=== PATIENT | male | born 1975 | race Caucasian/White ===

== ENCOUNTER 2020-07-07 18:48 | Emergency (ER) | payer SELFPAY ==
[2020-07-07] MEDS ORDERED: FAMOTIDINE 20MG/2ML IV (PEPCID) IV STA (18:57)
[2020-07-07] MEDS ORDERED: LACTATED RINGERS 1,000 ML IV STA (18:57)
[2020-07-07] MEDS ORDERED: ONDANSETRON 4 MG/2 ML (SDV) Z0FRAN IVP ONE (19:00)
== END 2020-07-07 18:57 | disposition left against medical advice (07) ==
LOC: EDUNIT# 18:48 → ER 18:51
DX: F10.129 Alcohol abuse with intoxication, unspecified (principal)

== ENCOUNTER 2022-04-03 01:35 | Inpatient (IN) | payer OTHER ==
[~2022-04-03] VITALS: Ht 193 cm; Wt 159.1 kg
[2022-04-03] VITALS (24 sets, daily range): BP systolic 122–185; BP diastolic 52–86
[2022-04-03] MEDS ORDERED: LACTATED RINGERS 1,000 ML IV ONE (02:15)
[2022-04-03 02:19] LABS: BASOPHILS % (AUTO) 1 % (0-10); EOSINOPHILS % (AUTO) 1 % (0-10); HEMATOCRIT 25 % (40-54); HEMOGLOBIN 7.8 g/dL (13.3-17.7); LYMPHOCYTES # (AUTO) 1.2 10^3/uL (1.0-4.0); LYMPHOCYTES % (AUTO) 24 % (12-44); MEAN CORPUSCULAR HEMOGLOBIN 28 pg (25-34); MEAN CORPUSCULAR HGB CONC 31 g/dL (32-36); MEAN CORPUSCULAR VOLUME 90 fL (80-99); MEAN PLATELET VOLUME 11.2 fL (9.0-12.2); MONOCYTES # (AUTO) 0.4 10^3/uL (0.0-1.0); MONOCYTES % (AUTO) 8 % (0-12); NEUTROPHILS # (AUTO) 3.4 10^3/uL (1.8-7.8); NEUTROPHILS % (AUTO) 66 % (42-75); WHITE BLOOD COUNT 5.2 10^3/uL (4.3-11.0)
[2022-04-03 02:21] LABS: PLATELET COUNT 34 10^3/uL (130-400)
[2022-04-03 02:23] LABS: ALBUMIN 2.9 GM/DL (3.2-4.5); CHLORIDE 104 MMOL/L (98-107); POTASSIUM 3.5 MMOL/L (3.6-5.0); SODIUM 140 MMOL/L (135-145)
[2022-04-03 02:24] LABS: CALCIUM 7.8 MG/DL (8.5-10.1)
[2022-04-03 02:26] LABS: GLUCOSE 236 MG/DL (70-105)
[2022-04-03 02:27] LABS: BILIRUBIN,TOTAL 3.5 MG/DL (0.1-1.0); CARBON DIOXIDE 22 MMOL/L (21-32)
[2022-04-03 02:29] LABS: ALKALINE PHOSPHATASE 111 U/L (40-136); CREATININE SERUM 1.12 MG/DL (0.60-1.30); GFR ESTIMATED 83
[2022-04-03 02:30] LABS: BUN/CREATININE RATIO 8
[2022-04-03 02:32] LABS: ALANINE AMINOTRANSFERASE 72 U/L (0-55)
[2022-04-03 02:42] LABS: AMYLASE 76 U/L (25-125)
[2022-04-03 02:45] LABS: CLARITY,URINE CLEAR; COLOR,URINE YELLOW; GLUCOSE, URINE (UA) TRACE (NEGATIVE); KETONES,URINE NEGATIVE (NEGATIVE); LEUKOCYTE ESTERASE ,URINE NEGATIVE (NEGATIVE); NITRITE,URINE NEGATIVE (NEGATIVE); PH,URINE 6.5 (5-9); PROTEIN,URINE TRACE (NEGATIVE)
[2022-04-03 02:48] LABS: FIBRIN DEGRADATION PRODUCTS 1.43 UG/ML (0.00-0.49); INR 1.7 (0.8-1.4); PROTHROMBIN TIME PATIENT 20.2 SEC (12.2-14.7)
[2022-04-03 02:49] LABS: MAGNESIUM 1.8 MG/DL (1.6-2.4)
[2022-04-03 02:50] LABS: LIPASE 62 U/L (8-78)
[2022-04-03 02:51] LABS: CREATINE KINASE 323 U/L (30-200)
[2022-04-03 02:57] LABS: CREATINE KINASE MB 3.9 NG/ML (<6.6)
[2022-04-03 03:09] LABS: BACTERIA,URINE NEGATIVE /HPF; BILIRUBIN,URINE 1+ (NEGATIVE); WBC,URINE 0-2 /HPF
[2022-04-03 03:11] LABS: TSH (THYROID ANALYZER) 2.23 UIU/ML (0.35-4.94)
[2022-04-03 03:19] LABS: AMPHETAMINE SCREEN, URINE NEGATIVE (NEGATIVE); BARBITURATE SCREEN URINE NEGATIVE (NEGATIVE); BENZODIAZEPINES SCREEN URINE NEGATIVE (NEGATIVE); CANNABINOID SCREEN, URINE POSITIVE (NEGATIVE); COCAINE SCREEN URINE NEGATIVE (NEGATIVE); METHADONE STAT NEGATIVE (NEGATIVE); OPIATE SCREEN URINE NEGATIVE (NEGATIVE); OXYCODONE STAT NEGATIVE (NEGATIVE); PROPOXYPHENE STAT NEGATIVE (NEGATIVE); TRICYCLIC ANTIDEPRESSANTS SCRE NEGATIVE (NEGATIVE)
[2022-04-03 03:48] LABS: ACETAMINOPHEN < 10 UG/ML (10-30)
[2022-04-03] MEDS ORDERED: NS IV 500 ML 500 ML ONE (04:07)
[2022-04-03] MEDS ORDERED: NS 100 ML (IVPB) BAG IV ONE (04:15)
[2022-04-03] MEDS ORDERED: CATHETER FLUSH 10 ML SYR IV PRN (04:15)
[2022-04-03] MEDS ORDERED: IOHEXOL 350 MG/ML 100 ML (OMNIPAQUE 350) VIAL IV ONE (04:15)
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
[2022-04-03] MEDS ORDERED: ONDANSETRON 4 MG/2 ML (SDV) Z0FRAN IV PRN (06:45)
[2022-04-03] MEDS ORDERED: ONDANSETRON 4 MG (ZOFRAN) ORAL DISSOLVE TAB SL PRN (06:45)
[2022-04-03] MEDS ORDERED: SENNA W/DOCUSATE (SENOKOT S) TABLET PO PRN (06:45)
[2022-04-03] MEDS ORDERED: ANTACID SUSP 30 ML UDC (MYLANTA) PO PRN (06:45)
[2022-04-03] MEDS ORDERED: 1/2 NS IV SOLUTION 1,000 ML IV PRN (06:45)
[2022-04-03] MEDS ORDERED: LORazepam INJ 2 MG/ML (ATIVAN) VIAL IV PRN (06:45)
[2022-04-03] MEDS ORDERED: LORazepam INJ 2 MG/ML (ATIVAN) VIAL IM/IV PRN (06:45)
[2022-04-03] MEDS ORDERED: D5 1/2 NS 1000 ML IV SOLUTION 1,000 ML IV PRN (06:45)
--- NOTE | 2022-04-03 07:16 | Diagnostic Imaging Report ---
EXAMINATION: CT angiography chest with and without, CT abdomen and pelvis with and without. TECHNIQUE: Noncontrast enhanced helical images were obtained through the chest, abdomen and pelvis. Contrast enhanced thin section helical images were obtained through the chest, abdomen and pelvis with intravenous contrast timed for the optimal opacification of the arterial structures per departmental CTA protocol. Post-processing, retro reconstructions and interpretation of angiographic images of the vessels was performed. 3D MIP reconstructions were performed and reviewed. All CT scans use one or more of the following dose optimizing techniques: automated exposure control, MA and/or KvP adjustment based on patient size and exam type or iterative reconstruction. HISTORY: Chest pain and elevated troponin, elevated bilirubin. COMPARISON: None available. FINDINGS: Evaluation for pulmonary embolism is limited by early scanning. No pulmonary embolism is seen to the lobar level. There is no edema or pneumonia. No pleural effusion. No pneumothorax. No suspicious nodules. There is no axillary or supraclavicular lymphadenopathy. There is no mediastinal lymphadenopathy. Heart size is normal. There are no coronary artery calcifications. No pericardial effusion. Aorta is normal in caliber. Liver is cirrhotic and heterogeneous. There are extensive collaterals in the left upper quadrant. There is no biliary ductal dilation. Mild gallbladder wall thickening is likely due to liver disease. Small stone is present in the gallbladder. Pancreas is normal. Spleen is enlarged. Adrenal glands are normal. The kidneys are normal. There is no hydronephrosis. Urinary bladder is normal. Bowel is normal in caliber without obstruction or inflammation. Appendix is normal. No free fluid or air. No abdominal or pelvic lymphadenopathy. Aorta is normal in caliber without aneurysm. There are no suspicious osseus lesions. IMPRESSION: 1. No pulmonary embolism, clear lungs. 2. Heterogeneous and cirrhotic liver with extensive portal venous collaterals and splenomegaly. There is no significant disagreement with the preliminary report. Dictated by: Dictated on workstation # [id number]
--- NOTE | 2022-04-03 07:58 | Diagnostic Imaging Report ---
EXAMINATION: Chest 1 view HISTORY: Chest pain COMPARISON: None available. FINDINGS: The lungs are clear without edema or pneumonia. No pleural effusion or pneumothorax. Heart size is normal. IMPRESSION: 1. Clear lungs. Dictated by: Dictated on workstation # [id number]
[2022-04-03] MEDS: 1/2 NS W/KCL 20 MEQ/L 1,000 ML IV SCH ×4 (08:40→22:30)
[2022-04-03] MEDS: THIAMINE INJECTION 100 MG, FOLIC ACID INJECTION 1 MG, MAGNESIUM SULFATE 2 GM, VITAMIN M... IV SCH ×5 (08:41)
[2022-04-03 08:56] LABS: CLARITY,URINE CLEAR; COLOR,URINE YELLOW; GLUCOSE, URINE (UA) TRACE (NEGATIVE); KETONES,URINE NEGATIVE (NEGATIVE); LEUKOCYTE ESTERASE ,URINE NEGATIVE (NEGATIVE); NITRITE,URINE NEGATIVE (NEGATIVE); PH,URINE 7.5 (5-9); PROTEIN,URINE TRACE (NEGATIVE)
[2022-04-03] MEDS ORDERED: PANTOPRAZOLE 40 MG (PROTONIX) VIAL IV SCH (09:00)
[2022-04-03 09:09] LABS: LYMPHOCYTES # (AUTO) 0.9 10^3/uL (1.0-4.0); NEUTROPHILS # (AUTO) 2.3 10^3/uL (1.8-7.8)
[2022-04-03 09:11] LABS: BASOPHILS % (AUTO) 1 % (0-10); EOSINOPHILS % (AUTO) 1 % (0-10); HEMATOCRIT 22 % (40-54); LYMPHOCYTES % (AUTO) 25 % (12-44); MEAN CORPUSCULAR HEMOGLOBIN 28 pg (25-34); MEAN CORPUSCULAR HGB CONC 32 g/dL (32-36); MEAN CORPUSCULAR VOLUME 88 fL (80-99); MEAN PLATELET VOLUME 10.6 fL (9.0-12.2); MONOCYTES # (AUTO) 0.3 10^3/uL (0.0-1.0); MONOCYTES % (AUTO) 9 % (0-12); NEUTROPHILS % (AUTO) 63 % (42-75); WHITE BLOOD COUNT 3.6 10^3/uL (4.3-11.0)
[2022-04-03 09:12] LABS: PLATELET COUNT 21 10^3/uL (130-400)
[2022-04-03 09:13] LABS: BACTERIA,URINE NEGATIVE /HPF; SQUAMOUS EPITHELIAL CELL,UR 0-2 /HPF
[2022-04-03 09:22] LABS: INR 1.8 (0.8-1.4); PROTHROMBIN TIME PATIENT 21.8 SEC (12.2-14.7)
[2022-04-03 09:31] LABS: ALBUMIN 2.6 GM/DL (3.2-4.5); BILIRUBIN,TOTAL 3.3 MG/DL (0.1-1.0); CALCIUM 7.4 MG/DL (8.5-10.1); CREATININE SERUM 0.81 MG/DL (0.60-1.30); POTASSIUM 3.3 MMOL/L (3.6-5.0); TOTAL PROTEIN 6.3 GM/DL (6.4-8.2)
[2022-04-03] MEDS ORDERED: NS IV 500 ML 500 ML IV SCH ×2 (09:45)
[2022-04-03] MEDS ORDERED: KCL 20 MEQ TAB (K-DUR) PO ONE ×3 (09:45→11:00)
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
--- NOTE | 2022-04-03 10:12 | CONSULTATION REPORT ---
DATE OF SERVICE: 04/03/2022 ADMITTING PHYSICIAN: Marlene Bello MD HISTORY OF PRESENT ILLNESS: The patient is a 46-year-old male who presented to the Emergency Department for weakness and dizziness. He states a history of alcoholism and states that he was in remission for the past 70 days; however, relapsed recently. His alcohol as upon admission was 0.37. He also has elevated INR, low albumin as well as elevated bilirubin and currently has a score of 10 on his modified Child-Ward classification and that takes into a grade C classification. Which brings his 1 year mortality rate to approximately 50%. It appears that he also has a history of liver cirrhosis. He does not report any episodes of ascites or known encephalopathy. He also does not recall any episodes of hematemesis, no coffee groundemesis and does not report having an upper endoscopy. He was found to be anemic and also reports that he has had issues with epistaxis. He does state that when he was dinking he would notice dark tarry stools.His platelets were found to be low at 21,000. He is currently admitted for IV hydration and detoxification. PAST MEDICAL HISTORY: Alcoholism and liver failure, liver cirrhosis. PAST SURGICAL HISTORY: None reported. ALLERGIES: No known drug allergies. MEDICATIONS: None. SOCIAL HISTORY: Current alcoholic. Positive smoke. Positive THC. FAMILY HISTORY: Noncontributory. VITAL SIGNS: Blood pressure 178/52, temperature 37.4, pulse ox 93% on room air. REVIEW OF SYSTEMS: Well-nourished male currently in no acute distress. He is not experiencing any shortness of breath or difficulty breathing. No chest pain, palpitations, diaphoresis. No nausea, vomiting. No diarrhea or constipation, no red blood per rectum, no dark tarry stools. No fever, chills. No recent inadvertent weight loss. All other review of systems negative. PHYSICAL EXAMINATION: CHEST: A few scattered wheezes bilaterally. HEART: Regular, no murmurs. EXTREMITIES: No lower extremity edema, negative Homans sign. HEENT: No scleral icterus. NECK: No cervical lymphadenopathy. ABDOMEN: Obese, nondistended, no abdominal pain. No hernias. SKIN: Warm and dry. ASSESSMENT AND PLAN: A 46-year-old male with history of alcoholism as well as likely liver cirrhosis and liver failure who is also anemic and thrombocytopenic. He has also a Child-Ward classification of liver failure C. Our recommendation is to proceed with continued conservative management for now with transfusion of packed red blood cells as well as platelets and to proceed with IV hydration. There is no contraindication to diet. At some point, he may need further workup including endoscopy for esophageal varices as well as a colonoscopy for hemorrhoidal disease. Due to the severity of his liver failure, he will also needs to stop drinking; however, would also likely need to see children's choir director. Job ID: [id number] DocumentID: [id number] Dictated Date: 04/03/2022 09:41:10 Cv/Cvn Cv Tsc System Operator Date: 04/03/2022 10:10:45 Dictated By: GUNNAR BOWER MD MTDD
--- NOTE | 2022-04-03 10:21 | Tele-ICU Consult ---
Progress Note video rounds completed 46 y/o male with ETOH and drug abuse admitted with possible GI bleed Recieved 1 unit PRBC, getting 2nd unit ETOH withdrawl on CIWA protocol Thiamine given PLAN: may need endoscopy Hold DVT px, SCD only Focused Exam Height, Weight, BMI Height: '" Weight: lbs. oz. kg; 32.48 BMI Method: Laboratory Tests 04/03/22 02:00 04/03/22 09:00 Results Results/Procedures Lab Laboratory Tests 04/03/22 02:00 04/03/22 09:00 Lab results: Laboratory Tests Test 04/03/22 02:00 04/03/22 02:30 04/03/22 02:45 04/03/22 03:10 Range/Units White Blood Count 5.2 4.3-11.0 10^3/uL Red Blood Count 2.77 L 4.30-5.52 10^6/uL Hemoglobin 7.8 L 13.3-17.7 g/dL Hematocrit 25 L 40-54 % Mean Corpuscular Volume 90 80-99 fL Mean Corpuscular Hemoglobin 28 25-34 pg Mean Corpuscular Hemoglobin Concent 31 L 32-36 g/dL Red Cell Distribution Width 16.0 H 10.0-14.5 % Platelet Count 34 *L 130-400 10^3/uL Mean Platelet Volume 11.2 9.0-12.2 fL Immature Granulocyte % (Auto) 2 % Neutrophils (%) (Auto) 66 42-75 % Lymphocytes (%) (Auto) 24 12-44 % Monocytes (%) (Auto) 8 0-12 % Eosinophils (%) (Auto) 1 0-10 % Basophils (%) (Auto) 1 0-10 % Neutrophils # (Auto) 3.4 1.8-7.8 10^3/uL Lymphocytes # (Auto) 1.2 1.0-4.0 10^3/uL Monocytes # (Auto) 0.4 0.0-1.0 10^3/uL Eosinophils # (Auto) 0.0 0.0-0.3 10^3/uL Basophils # (Auto) 0.0 0.0-0.1 10^3/uL Immature Granulocyte # (Auto) 0.1 0.0-0.1 10^3/uL Prothrombin Time 20.2 H 12.2-14.7 SEC INR Comment 1.7 H 0.8-1.4 Activated Partial Thromboplast Time 42 H 24-35 SEC D-Dimer 1.43 H 0.00-0.49 UG/ML Sodium Level 140 135-145 MMOL/L Potassium Level 3.5 L 3.6-5.0 MMOL/L Chloride Level 104 98-107 MMOL/L Carbon Dioxide Level 22 21-32 MMOL/L Anion Gap 14 5-14 MMOL/L Blood Urea Nitrogen 9 7-18 MG/DL Creatinine 1.12 0.60-1.30 MG/DL Estimat Glomerular Filtration Rate 83 BUN/Creatinine Ratio 8 Glucose Level 236 H 70-105 MG/DL Calcium Level 7.8 L 8.5-10.1 MG/DL Corrected Calcium 8.7 8.5-10.1 MG/DL Magnesium Level 1.8 1.6-2.4 MG/DL Total Bilirubin 3.5 H 0.1-1.0 MG/DL Aspartate Amino Transf (AST/SGOT) 154 H 5-34 U/L Alanine Aminotransferase (ALT/SGPT) 72 H 0-55 U/L Alkaline Phosphatase 111 40-136 U/L Total Creatine Kinase 323 H 30-200 U/L Creatine Kinase MB 3.9 <6.6 NG/ML Troponin I 0.047 H <0.028 NG/ML B-Type Natriuretic Peptide 62.7 <100.0 PG/ML Total Protein 7.0 6.4-8.2 GM/DL Albumin 2.9 L 3.2-4.5 GM/DL Amylase Level 76 25-125 U/L Lipase 62 8-78 U/L Beta-Hydroxybutyrate (Chem panel) 0.11 0.00-0.27 MMOL/L TSH [place] Testing 2.23 0.35-4.94 UIU/ML Acetaminophen Level < 10 L 10-30 UG/ML Serum Alcohol 368 *H <10 MG/DL Urine Color YELLOW Urine Clarity CLEAR Urine pH 6.5 5-9 Urine Specific [place] 1.015 L 1.016-1.022 Urine Protein TRACE H NEGATIVE Urine Glucose (UA) TRACE H NEGATIVE Urine Ketones NEGATIVE NEGATIVE Urine Nitrite NEGATIVE NEGATIVE Urine Bilirubin 1+ H NEGATIVE Urine Urobilinogen 4.0 < = 1.0 MG/DL Urine Leukocyte Esterase NEGATIVE NEGATIVE Urine RBC (Auto) 2+ H NEGATIVE Urine RBC 10-25 H /HPF Urine WBC 0-2 /HPF Urine Squamous Epithelial Cells 2-5 /HPF Urine Crystals NONE /LPF Urine Bacteria NEGATIVE /HPF Urine Casts NONE /LPF Urine Mucus SMALL H /LPF Urine Culture Indicated NO Urine Opiates Screen NEGATIVE NEGATIVE Urine Oxycodone Screen NEGATIVE NEGATIVE Urine Methadone Screen NEGATIVE NEGATIVE Urine Propoxyphene Screen NEGATIVE NEGATIVE Urine Barbiturates Screen NEGATIVE NEGATIVE Ur Tricyclic Antidepressants Screen NEGATIVE NEGATIVE Urine Phencyclidine Screen NEGATIVE NEGATIVE Urine Amphetamines Screen NEGATIVE NEGATIVE Urine Methamphetamines Screen NEGATIVE NEGATIVE Urine Benzodiazepines Screen NEGATIVE NEGATIVE Urine Cocaine Screen NEGATIVE NEGATIVE Urine Cannabinoids Screen POSITIVE H NEGATIVE Influenza Type A (RT-PCR) Not Detected Not Detecte Influenza Type B (RT-PCR) Not Detected Not Detecte SARS-CoV-2 RNA (RT-PCR) Not Detected Not Detecte Test 04/03/22 06:15 04/03/22 08:45 04/03/22 09:00 Range/Units Urine Color YELLOW Urine Clarity CLEAR Urine pH 7.5 5-9 Urine Specific [place] 1.010 L 1.016-1.022 Urine Protein TRACE H NEGATIVE Urine Glucose (UA) TRACE H NEGATIVE Urine Ketones NEGATIVE NEGATIVE Urine Nitrite NEGATIVE NEGATIVE Urine Bilirubin 1+ H NEGATIVE Urine Urobilinogen 4.0 < = 1.0 MG/DL Urine Leukocyte Esterase NEGATIVE NEGATIVE Urine RBC (Auto) 2+ H NEGATIVE Urine RBC 2-5 H /HPF Urine WBC NONE /HPF Urine Squamous Epithelial Cells 0-2 /HPF Urine Crystals NONE /LPF Urine Bacteria NEGATIVE /HPF Urine Casts NONE /LPF Urine Mucus NEGATIVE /LPF Urine Culture Indicated NO White Blood Count 3.6 L 4.3-11.0 10^3/uL Red Blood Count 2.48 L 4.30-5.52 10^6/uL Hemoglobin 7.0 L 13.3-17.7 g/dL Hematocrit 22 L 40-54 % Mean Corpuscular Volume 88 80-99 fL Mean Corpuscular Hemoglobin 28 25-34 pg Mean Corpuscular Hemoglobin Concent 32 32-36 g/dL Red Cell Distribution Width 16.1 H 10.0-14.5 % Platelet Count 21 *L 130-400 10^3/uL Mean Platelet Volume 10.6 9.0-12.2 fL Immature Granulocyte % (Auto) 2 % Neutrophils (%) (Auto) 63 42-75 % Lymphocytes (%) (Auto) 25 12-44 % Monocytes (%) (Auto) 9 0-12 % Eosinophils (%) (Auto) 1 0-10 % Basophils (%) (Auto) 1 0-10 % Neutrophils # (Auto) 2.3 1.8-7.8 10^3/uL Lymphocytes # (Auto) 0.9 L 1.0-4.0 10^3/uL Monocytes # (Auto) 0.3 0.0-1.0 10^3/uL Eosinophils # (Auto) 0.0 0.0-0.3 10^3/uL Basophils # (Auto) 0.0 0.0-0.1 10^3/uL Immature Granulocyte # (Auto) 0.1 0.0-0.1 10^3/uL Percent Immature Platelet Fraction 6.6 0.0-7.6 % Prothrombin Time 21.8 H 12.2-14.7 SEC INR Comment 1.8 H 0.8-1.4 Activated Partial Thromboplast Time 43 H 24-35 SEC Sodium Level 139 135-145 MMOL/L Potassium Level 3.3 L 3.6-5.0 MMOL/L Chloride Level 105 98-107 MMOL/L Carbon Dioxide Level 21 21-32 MMOL/L Anion Gap 13 5-14 MMOL/L Blood Urea Nitrogen 9 7-18 MG/DL Creatinine 0.81 0.60-1.30 MG/DL Estimat Glomerular Filtration Rate 111 BUN/Creatinine Ratio 11 Glucose Level 164 H 70-105 MG/DL Calcium Level 7.4 L 8.5-10.1 MG/DL Corrected Calcium 8.5 8.5-10.1 MG/DL Total Bilirubin 3.3 H 0.1-1.0 MG/DL Aspartate Amino Transf (AST/SGOT) 137 H 5-34 U/L Alanine Aminotransferase (ALT/SGPT) 62 H 0-55 U/L Alkaline Phosphatase 98 40-136 U/L Troponin I 0.056 H <0.028 NG/ML Total Protein 6.3 L 6.4-8.2 GM/DL Albumin 2.6 L 3.2-4.5 GM/DL Serum Alcohol 266 H <10 MG/DL Results Labs Labs Laboratory Tests 04/03/22 02:00: White Blood Count 5.2, Red Blood Count 2.77L, Hemoglobin 7.8L, Hematocrit 25L, Mean Corpuscular Volume 90, Mean Corpuscular Hemoglobin 28, Mean Corpuscular Hemoglobin Concent 31L, Red Cell Distribution Width 16.0H, Platelet Count 34*L, Mean Platelet Volume 11.2, Immature Granulocyte % (Auto) 2, Neutrophils (%) (Auto) 66, Lymphocytes (%) (Auto) 24, Monocytes (%) (Auto) 8, Eosinophils (%) (Auto) 1, Basophils (%) (Auto) 1, Neutrophils # (Auto) 3.4, Lymphocytes # (Auto) 1.2, Monocytes # (Auto) 0.4, Eosinophils # (Auto) 0.0, Basophils # (Auto) 0.0, Immature Granulocyte # (Auto) 0.1, Prothrombin Time 20.2H, INR Comment 1.7H, Activated Partial Thromboplast Time 42H, D-Dimer 1.43H, Sodium Level 140, Potassium Level 3.5L, Chloride Level 104, Carbon Dioxide Level 22, Anion Gap 14, Blood Urea Nitrogen 9, Creatinine 1.12, Estimat Glomerular Filtration Rate 83, BUN/Creatinine Ratio 8, Glucose Level 236H, Calcium Level 7.8L, Corrected Calcium 8.7, Magnesium Level 1.8, Total Bilirubin 3.5H, Aspartate Amino Transf (AST/SGOT) 154H, Alanine Aminotransferase (ALT/SGPT) 72H, Alkaline Phosphatase 111, Total Creatine Kinase 323H, Creatine Kinase MB 3.9, Troponin I 0.047H, B- Type Natriuretic Peptide 62.7, Total Protein 7.0, Albumin 2.9L, Amylase Level 76, Lipase 62, Beta-Hydroxybutyrate (Chem panel) 0.11, TSH [place] Testing 2.23, Acetaminophen Level < 10L, Serum Alcohol 368*H 04/03/22 02:30: Urine Color YELLOW, Urine Clarity CLEAR, Urine pH 6.5, Urine Specific [place] 1.015L, Urine Protein TRACEH, Urine Glucose (UA) TRACEH, Urine Ketones NEGATIVE, Urine Nitrite NEGATIVE, Urine Bilirubin 1+H, Urine Urobilinogen 4.0, Urine Leukocyte Esterase NEGATIVE, Urine RBC (Auto) 2+H, Urine RBC 10-25H, Urine WBC 0-2, Urine Squamous Epithelial Cells 2-5, Urine Crystals NONE, Urine Bacteria NEGATIVE, Urine Casts NONE, Urine Mucus SMALLH, Urine Culture Indicated NO, Urine Opiates Screen NEGATIVE, Urine Oxycodone Screen NEGATIVE, Urine Methadone Screen NEGATIVE, Urine Propoxyphene Screen NEGATIVE, Urine Barbiturates Screen NEGATIVE, Ur Tricyclic Antidepressants Screen NEGATIVE, Urine Phencyclidine Screen NEGATIVE, Urine Amphetamines Screen NEGATIVE, Urine Methamphetamines Screen NEGATIVE, Urine Benzodiazepines Screen NEGATIVE, Urine Cocaine Screen NEGATIVE, Urine Cannabinoids Screen POSITIVEH 04/03/22 02:45: Influenza Type A (RT-PCR) Not Detected, Influenza Type B (RT-PCR) Not Detected, SARS-CoV-2 RNA (RT-PCR) Not Detected 04/03/22 03:10: 04/03/22 06:15: 04/03/22 08:45: Urine Color YELLOW, Urine Clarity CLEAR, Urine pH 7.5, Urine Specific [place] 1.010L, Urine Protein TRACEH, Urine Glucose (UA) TRACEH, Urine Ketones NEGATIVE, Urine Nitrite NEGATIVE, Urine Bilirubin 1+H, Urine Urobilinogen 4.0, Urine Leukocyte Esterase NEGATIVE, Urine RBC (Auto) 2+H, Urine RBC 2-5H, Urine WBC NONE, Urine Squamous Epithelial Cells 0-2, Urine Crystals NONE, Urine Bacteria NEGATIVE, Urine Casts NONE, Urine Mucus NEGATIVE, Urine Culture Indicated NO 04/03/22 09:00: White Blood Count 3.6L, Red Blood Count 2.48L, Hemoglobin 7.0L, Hematocrit 22L, Mean Corpuscular Volume 88, Mean Corpuscular Hemoglobin 28, Mean Corpuscular Hemoglobin Concent 32, Red Cell Distribution Width 16.1H, Platelet Count 21*L, Mean Platelet Volume 10.6, Immature Granulocyte % (Auto) 2, Neutrophils (%) (Auto) 63, Lymphocytes (%) (Auto) 25, Monocytes (%) (Auto) 9, Eosinophils (%) (Auto) 1, Basophils (%) (Auto) 1, Neutrophils # (Auto) 2.3, Lymphocytes # (Auto) 0.9L, Monocytes # (Auto) 0.3, Eosinophils # (Auto) 0.0, Basophils # (Auto) 0.0, Immature Granulocyte # (Auto) 0.1, Percent Immature Platelet Fraction 6.6, Prothrombin Time 21.8H, INR Comment 1.8H, Activated Partial Thromboplast Time 43H, Sodium Level 139, Potassium Level 3.3L, Chloride Level 105, Carbon Dioxide Level 21, Anion Gap 13, Blood Urea Nitrogen 9, Creatinine 0.81, Estimat Glomerular Filtration Rate 111, BUN/Creatinine Ratio 11, Glucose Level 164H, Calcium Level 7.4L, Corrected Calcium 8.5, Total Bilirubin 3.3H, Aspartate Amino Transf (AST/SGOT) 137H, Alanine Aminotransferase (ALT/SGPT) 62H, Alkaline Phosphatase 98, Troponin I 0.056H, Total Protein 6.3L, Albumin 2.6L, Serum Alcohol 266H NATALIA GUTHRIE MD Apr 03, 2022 10:21
[2022-04-03 10:40] LABS: BILIRUBIN,URINE 1+ (NEGATIVE)
[2022-04-03] MEDS ORDERED: inSUlin ASPART (NovoLOG) 1 UNIT/0.01 ML (CHARGE PER UNIT) SC SCH (11:00)
[2022-04-03] MEDS: inSUlin ASPART (NovoLOG) 1 UNIT/0.01 ML (CHARGE PER UNIT) SC SCH ×3 (11:37→22:30)
--- NOTE | 2022-04-03 12:34 | Consultation-Cardiology ---
HPI-Cardiology Cardiology Consultation Date of Consultation 04/03/22 Date of Admission Time Seen by Provider: 12:28 Indication: Elevated troponin level HPI 46 years old gentleman with history of alcohol abuse. Admitted through the emergency room after starting to have palpitation, patient went through stressful family event and he returned to drinking heavily for the past 2 to 3 days. Patient has been having some nosebleed and coughing up blood. He denied any chest pain but started to have palpitation and felt his heart racing. He was noted to have elevated troponin level. No previous cardiac history. Home Medications & Allergies Allergies: Coded Allergies: No Known Drug Allergies (Unverified , 07/07/20) Home Medication List Reviewed: Yes [id number] Hx Patient Social History Marital Status: Employed/Student: unemployed Smoking Status: Current Everyday Smoker Alcohol Use?: Yes Substance type: Nicotine, Marijuana Past Medical History Discussed below Family Medical History Family Medical Hx Noncontributory Review of Systems-General Review of Systems Constitutional: see HPI; No chills, No fever; malaise, weakness EENTM: see HPI, nose pain Respiratory: see HPI, cough; No short of breath; other (Blood and sputum) Cardiovascular: see HPI; No chest pain; edema, palpitations Gastrointestinal: see HPI; No abdominal pain, No diarrhea, No hematemesis, No melena, No nausea, No vomiting Genitourinary: see HPI; No decreased output, No dysuria, No frequency Musculoskeletal: see HPI, back pain Skin: no symptoms reported Psychiatric/Neurological: See HPI Reviewed Test Results Reviewed Test Results Lab Laboratory Tests Test 04/03/22 02:00 04/03/22 02:30 04/03/22 02:45 04/03/22 03:10 Range/Units White Blood Count 5.2 4.3-11.0 10^3/uL Red Blood Count 2.77 L 4.30-5.52 10^6/uL Hemoglobin 7.8 L 13.3-17.7 g/dL Hematocrit 25 L 40-54 % Mean Corpuscular Volume 90 80-99 fL Mean Corpuscular Hemoglobin 28 25-34 pg Mean Corpuscular Hemoglobin Concent 31 L 32-36 g/dL Red Cell Distribution Width 16.0 H 10.0-14.5 % Platelet Count 34 *L 130-400 10^3/uL Mean Platelet Volume 11.2 9.0-12.2 fL Immature Granulocyte % (Auto) 2 % Neutrophils (%) (Auto) 66 42-75 % Lymphocytes (%) (Auto) 24 12-44 % Monocytes (%) (Auto) 8 0-12 % Eosinophils (%) (Auto) 1 0-10 % Basophils (%) (Auto) 1 0-10 % Neutrophils # (Auto) 3.4 1.8-7.8 10^3/uL Lymphocytes # (Auto) 1.2 1.0-4.0 10^3/uL Monocytes # (Auto) 0.4 0.0-1.0 10^3/uL Eosinophils # (Auto) 0.0 0.0-0.3 10^3/uL Basophils # (Auto) 0.0 0.0-0.1 10^3/uL Immature Granulocyte # (Auto) 0.1 0.0-0.1 10^3/uL Prothrombin Time 20.2 H 12.2-14.7 SEC INR Comment 1.7 H 0.8-1.4 Activated Partial Thromboplast Time 42 H 24-35 SEC D-Dimer 1.43 H 0.00-0.49 UG/ML Sodium Level 140 135-145 MMOL/L Potassium Level 3.5 L 3.6-5.0 MMOL/L Chloride Level 104 98-107 MMOL/L Carbon Dioxide Level 22 21-32 MMOL/L Anion Gap 14 5-14 MMOL/L Blood Urea Nitrogen 9 7-18 MG/DL Creatinine 1.12 0.60-1.30 MG/DL Estimat Glomerular Filtration Rate 83 BUN/Creatinine Ratio 8 Glucose Level 236 H 70-105 MG/DL Calcium Level 7.8 L 8.5-10.1 MG/DL Corrected Calcium 8.7 8.5-10.1 MG/DL Magnesium Level 1.8 1.6-2.4 MG/DL Total Bilirubin 3.5 H 0.1-1.0 MG/DL Aspartate Amino Transf (AST/SGOT) 154 H 5-34 U/L Alanine Aminotransferase (ALT/SGPT) 72 H 0-55 U/L Alkaline Phosphatase 111 40-136 U/L Total Creatine Kinase 323 H 30-200 U/L Creatine Kinase MB 3.9 <6.6 NG/ML Troponin I 0.047 H <0.028 NG/ML B-Type Natriuretic Peptide 62.7 <100.0 PG/ML Total Protein 7.0 6.4-8.2 GM/DL Albumin 2.9 L 3.2-4.5 GM/DL Amylase Level 76 25-125 U/L Lipase 62 8-78 U/L Beta-Hydroxybutyrate (Chem panel) 0.11 0.00-0.27 MMOL/L TSH [place] Testing 2.23 0.35-4.94 UIU/ML Acetaminophen Level < 10 L 10-30 UG/ML Serum Alcohol 368 *H <10 MG/DL Urine Color YELLOW Urine Clarity CLEAR Urine pH 6.5 5-9 Urine Specific [place] 1.015 L 1.016-1.022 Urine Protein TRACE H NEGATIVE Urine Glucose (UA) TRACE H NEGATIVE Urine Ketones NEGATIVE NEGATIVE Urine Nitrite NEGATIVE NEGATIVE Urine Bilirubin 1+ H NEGATIVE Urine Urobilinogen 4.0 < = 1.0 MG/DL Urine Leukocyte Esterase NEGATIVE NEGATIVE Urine RBC (Auto) 2+ H NEGATIVE Urine RBC 10-25 H /HPF Urine WBC 0-2 /HPF Urine Squamous Epithelial Cells 2-5 /HPF Urine Crystals NONE /LPF Urine Bacteria NEGATIVE /HPF Urine Casts NONE /LPF Urine Mucus SMALL H /LPF Urine Culture Indicated NO Urine Opiates Screen NEGATIVE NEGATIVE Urine Oxycodone Screen NEGATIVE NEGATIVE Urine Methadone Screen NEGATIVE NEGATIVE Urine Propoxyphene Screen NEGATIVE NEGATIVE Urine Barbiturates Screen NEGATIVE NEGATIVE Ur Tricyclic Antidepressants Screen NEGATIVE NEGATIVE Urine Phencyclidine Screen NEGATIVE NEGATIVE Urine Amphetamines Screen NEGATIVE NEGATIVE Urine Methamphetamines Screen NEGATIVE NEGATIVE Urine Benzodiazepines Screen NEGATIVE NEGATIVE Urine Cocaine Screen NEGATIVE NEGATIVE Urine Cannabinoids Screen POSITIVE H NEGATIVE Influenza Type A (RT-PCR) Not Detected Not Detecte Influenza Type B (RT-PCR) Not Detected Not Detecte SARS-CoV-2 RNA (RT-PCR) Not Detected Not Detecte Test 04/03/22 06:15 04/03/22 08:45 04/03/22 09:00 04/03/22 11:24 Range/Units Urine Color YELLOW Urine Clarity CLEAR Urine pH 7.5 5-9 Urine Specific [place] 1.010 L 1.016-1.022 Urine Protein TRACE H NEGATIVE Urine Glucose (UA) TRACE H NEGATIVE Urine Ketones NEGATIVE NEGATIVE Urine Nitrite NEGATIVE NEGATIVE Urine Bilirubin 1+ H NEGATIVE Urine Urobilinogen 4.0 < = 1.0 MG/DL Urine Leukocyte Esterase NEGATIVE NEGATIVE Urine RBC (Auto) 2+ H NEGATIVE Urine RBC 2-5 H /HPF Urine WBC NONE /HPF Urine Squamous Epithelial Cells 0-2 /HPF Urine Crystals NONE /LPF Urine Bacteria NEGATIVE /HPF Urine Casts NONE /LPF Urine Mucus NEGATIVE /LPF Urine Culture Indicated NO White Blood Count 3.6 L 4.3-11.0 10^3/uL Red Blood Count 2.48 L 4.30-5.52 10^6/uL Hemoglobin 7.0 L 13.3-17.7 g/dL Hematocrit 22 L 40-54 % Mean Corpuscular Volume 88 80-99 fL Mean Corpuscular Hemoglobin 28 25-34 pg Mean Corpuscular Hemoglobin Concent 32 32-36 g/dL Red Cell Distribution Width 16.1 H 10.0-14.5 % Platelet Count 21 *L 130-400 10^3/uL Mean Platelet Volume 10.6 9.0-12.2 fL Immature Granulocyte % (Auto) 2 % Neutrophils (%) (Auto) 63 42-75 % Lymphocytes (%) (Auto) 25 12-44 % Monocytes (%) (Auto) 9 0-12 % Eosinophils (%) (Auto) 1 0-10 % Basophils (%) (Auto) 1 0-10 % Neutrophils # (Auto) 2.3 1.8-7.8 10^3/uL Lymphocytes # (Auto) 0.9 L 1.0-4.0 10^3/uL Monocytes # (Auto) 0.3 0.0-1.0 10^3/uL Eosinophils # (Auto) 0.0 0.0-0.3 10^3/uL Basophils # (Auto) 0.0 0.0-0.1 10^3/uL Immature Granulocyte # (Auto) 0.1 0.0-0.1 10^3/uL Percent Immature Platelet Fraction 6.6 0.0-7.6 % Prothrombin Time 21.8 H 12.2-14.7 SEC INR Comment 1.8 H 0.8-1.4 Activated Partial Thromboplast Time 43 H 24-35 SEC Sodium Level 139 135-145 MMOL/L Potassium Level 3.3 L 3.6-5.0 MMOL/L Chloride Level 105 98-107 MMOL/L Carbon Dioxide Level 21 21-32 MMOL/L Anion Gap 13 5-14 MMOL/L Blood Urea Nitrogen 9 7-18 MG/DL Creatinine 0.81 0.60-1.30 MG/DL Estimat Glomerular Filtration Rate 111 BUN/Creatinine Ratio 11 Glucose Level 164 H 70-105 MG/DL Calcium Level 7.4 L 8.5-10.1 MG/DL Corrected Calcium 8.5 8.5-10.1 MG/DL Total Bilirubin 3.3 H 0.1-1.0 MG/DL Aspartate Amino Transf (AST/SGOT) 137 H 5-34 U/L Alanine Aminotransferase (ALT/SGPT) 62 H 0-55 U/L Alkaline Phosphatase 98 40-136 U/L Troponin I 0.056 H <0.028 NG/ML Total Protein 6.3 L 6.4-8.2 GM/DL Albumin 2.6 L 3.2-4.5 GM/DL Serum Alcohol 266 H <10 MG/DL Glucometer 168 H 70-110 MG/DL Physical Exam Physical Exam Vital Signs Vital Signs - First Documented 04/03/22 04/03/22 01:48 08:48 Temp 36.4 Pulse 90 Resp 24 B/P (MAP) 163/74 (103) Pulse Ox 96 O2 Delivery Room Air O2 Flow Rate 2.00 Capillary Refill : Less Than 3 Seconds Height, Weight, BMI Height: '" Weight: lbs. oz. kg; 32.48 BMI Method: General Appearance: Anxious, Chronically ill, Obese HEENT: PERRL/EOMI, Moist Mucous Membranes (no appreciable bleeding); No Scleral Icterus (L), No Scleral Icterus (R) Neck: Normal Inspection, Supple Respiratory: Lungs Clear, No Accessory Muscle Use, No Respiratory Distress Cardiovascular: Regular Rate, Rhythm, No JVD, No Murmur Gastrointestinal: Normal Bowel Sounds, Non Tender, Soft; No Distended, No Guarding Back: No CVA Tenderness Extremity: Normal Capillary Refill, No Calf Tenderness, Pedal Edema (trace bilateral) Neurologic/Psychiatric: Alert, Oriented x3 (to major details only); No Aphasia, No Facial Droop Skin: Normal Color, Warm/Dry, Tattoos/Piercings A/P-Cardiology Admission Diagnosis Palpitation Alcohol intoxication Type II myocardial infarction Hypertension Assessment/Plan Palpitation, sinus tachycardia. Reporting history of anxiety and panic attack Heart rate is better at this time. Continue to monitor Elevated troponin level. Probably secondary to tachycardia, anemia and alcoho lism. He is 46 years old and no acute EKG changes. Continue to monitor the trend of the troponin. Cannot tolerate aggressive a nticoagulation due to active bleeding Epistaxis and hemoptysis. Worsening anemia. Receiving blood transfusion. Continue to monitor closely. 2D echo was done on April 03, 2022 showing moderate left ventricular hypertrophy with normal systolic function, ejection fraction 60%. Estimated pulmonary artery pressure of 30 to 35 mmHg Alcohol intoxication. History of heavy alcoholism, relapsed back to alcoholism recently. Managed by medical team Hepatic cirrhosis, alcoholic liver disease. Managed by medical team. Hypertension, monitor blood pressure closely. Obesity, BMI 32 DREA RIVERO MD Apr 03, 2022 12:33
[2022-04-03] MEDS: LORazepam 1 MG (ATIVAN) TAB PO PRN ×3 (14:00→23:12)
[2022-04-03] MEDS ORDERED: LISI20TA26 PO (14:14)
[2022-04-03] MEDS ORDERED: GABA-490 PO (14:14)
[2022-04-03] MEDS ORDERED: VENL-48 PO (14:14)
[2022-04-03] MEDS ORDERED: FURO20TA4 PO (14:14)
[2022-04-03] MEDS ORDERED: MAGN200T8 PO (14:14)
[2022-04-03] MEDS ORDERED: PNT400TCR PO (14:14)
[2022-04-03] MEDS ORDERED: NALT50TA PO (14:14)
[2022-04-03] MEDS ORDERED: GABA300S2 PO (14:14)
[2022-04-03 15:59] LABS: HEMATOCRIT 23 % (40-54); HEMOGLOBIN 7.4 g/dL (13.3-17.7); MEAN CORPUSCULAR HEMOGLOBIN 28 pg (25-34); MEAN CORPUSCULAR HGB CONC 32 g/dL (32-36); MEAN CORPUSCULAR VOLUME 89 fL (80-99); WHITE BLOOD COUNT 2.8 10^3/uL (4.3-11.0)
[2022-04-03 16:00] LABS: PLATELET COUNT 20 10^3/uL (130-400)
[2022-04-03] MEDS: PANTOPRAZOLE 40 MG (PROTONIX) VIAL IV SCH (22:30)
[2022-04-04] VITALS (9 sets, daily range): BP systolic 119–171; BP diastolic 68–108
[2022-04-04] MEDS: 1/2 NS W/KCL 20 MEQ/L 1,000 ML IV SCH (03:46)
[2022-04-04] MEDS: LORazepam 1 MG (ATIVAN) TAB PO PRN (03:46)
[2022-04-04 05:18] LABS: BASOPHILS % (AUTO) 1 % (0-10); EOSINOPHILS % (AUTO) 1 % (0-10); HEMATOCRIT 25 % (40-54); HEMOGLOBIN 7.7 g/dL (13.3-17.7); LYMPHOCYTES # (AUTO) 0.6 10^3/uL (1.0-4.0); LYMPHOCYTES % (AUTO) 24 % (12-44); MEAN CORPUSCULAR HEMOGLOBIN 28 pg (25-34); MEAN CORPUSCULAR HGB CONC 31 g/dL (32-36); MEAN CORPUSCULAR VOLUME 89 fL (80-99); MONOCYTES # (AUTO) 0.3 10^3/uL (0.0-1.0); MONOCYTES % (AUTO) 11 % (0-12); NEUTROPHILS # (AUTO) 1.7 10^3/uL (1.8-7.8); NEUTROPHILS % (AUTO) 63 % (42-75); WHITE BLOOD COUNT 2.7 10^3/uL (4.3-11.0)
[2022-04-04 05:20] LABS: PLATELET COUNT 26 10^3/uL (130-400)
[2022-04-04 05:32] LABS: ALBUMIN 2.7 GM/DL (3.2-4.5); POTASSIUM 3.6 MMOL/L (3.6-5.0)
[2022-04-04 05:33] LABS: CALCIUM 7.6 MG/DL (8.5-10.1)
[2022-04-04 05:34] LABS: TOTAL PROTEIN 6.4 GM/DL (6.4-8.2)
[2022-04-04 05:38] LABS: CREATININE SERUM 0.74 MG/DL (0.60-1.30); PHOSPHORUS 2.3 MG/DL (2.3-4.7)
[2022-04-04 05:41] LABS: MAGNESIUM 1.9 MG/DL (1.6-2.4)
[2022-04-04] MEDS ORDERED: MAGNESIUM 1 GM/100 ML IVPB 100 ML IV SCH (06:00)
[2022-04-04] MEDS ORDERED: KCL 20 MEQ TAB (K-DUR) PO SCH (06:00)
[2022-04-04] MEDS ORDERED: POTASSIUM CL 10MEQ/50ML IVPB 50 ML IV SCH (06:00)
[2022-04-04] MEDS: inSUlin ASPART (NovoLOG) 1 UNIT/0.01 ML (CHARGE PER UNIT) SC SCH ×4 (06:05→21:31)
[2022-04-04] MEDS ORDERED: KCL 20 MEQ TAB (K-DUR) PO ONE (08:00)
[2022-04-04] MEDS: THIAMINE INJECTION 100 MG, FOLIC ACID INJECTION 1 MG, MAGNESIUM SULFATE 2 GM, VITAMIN M... IV SCH ×5 (09:11)
--- NOTE | 2022-04-04 09:16 | Cardiology Progress Note ---
Subjective Date Seen by Provider: Apr 04, 2022 Time Seen by Provider: 09:15 Subjective/Events-last exam Patient was seen at bedside, laying down comfortably Did not sleep well last night. Denied any chest pain. Review of Systems General: No Chills, No Night Sweats; Fatigue, Malaise; No Appetite, No Other HEENT: No Head Aches, No Visual Changes, No Eye Pain, No Ear Pain, No Dysphasia, No Sinus Congestion, No Post Nasal Drip, No Sore Throat, No Other Pulmonary: No Dyspnea, No Cough, No Pleuritic Chest Pain, No Other Cardiovascular: No: Chest Pain, Palpitations, Orthopnea, Paroxysmal Noc. Dyspnea, Edema, Lt Headedness, Other Objective-Cardiology Exam Last Set of Vital Signs Vital Signs 04/03/22 04/04/22 04/04/22 20:00 06:00 07:48 Temp 36.9 Pulse 84 B/P (MAP) 171/84 (113) Pulse Ox 95 O2 Delivery Nasal Cannula O2 Flow Rate 2.00 I&O Intake and Output 04/04/22 00:00 Intake Total 2795.2 ml Output Total 1175 ml Balance 1620.2 ml Intake Oral 1580 ml IV Total 1215.2 ml Output Urine Total 1175 ml # Bowel Movements 1 # Emeses 1 Daily Weight Change No General: Alert, Oriented X3, Cooperative HEENT: Atraumatic, PERRLA Neck: Supple, No JVD, No Thyromegaly Lungs: Clear to Auscultation, Normal Air Movement Heart: Regular Rate, Normal S1, Normal S2, No Murmurs Abdomen: Normal Bowel Sounds, Soft, No Tenderness, No Hepatosplenomegaly, No Masses Extremities: No Clubbing, No Cyanosis, No Edema, Normal Pulses, No Tenderness/Swelling Skin: No Rashes, No Breakdown, No Significant Lesion Neuro: Normal Gait, Normal Speech, Strength at 5/5 X4 Ext, Normal Tone, Sensation Intact Psych/Mental Status: Mental Status NL, Mood NL Results Lab Laboratory Tests 04/03/22 15:50 04/04/22 05:10 A/P-Cardiology Admission Diagnosis Palpitation Alcohol intoxication Type II myocardial infarction Hypertension Assessment/Plan Palpitation, sinus tachycardia. Reporting history of anxiety and panic attack Heart rate is better at this time. Continue to monitor Elevated troponin level. Probably secondary to tachycardia, anemia and alcoholism. He is 46 years old and no acute EKG changes. Continue to monitor the trend of the troponin. Cannot tolerate aggressive anticoagulation due to active bleeding Pancytopenia, probably secondary to alcoholism. Possible vitamin B12 deficiency, managed by primary care team. Epistaxis and hemoptysis. Worsening anemia. Receiving blood transfusion. Continue to monitor closely. 2D echo was done on April 03, 2022 showing moderate left ventricular hypertrophy with normal systolic function, ejection fraction 60%. Estimated pulmonary artery pressure of 30 to 35 mmHg Alcohol intoxication. History of heavy alcoholism, relapsed back to alcoholism recently. Managed by medical team Hepatic cirrhosis, alcoholic liver disease. Managed by medical team. Hypertension, monitor blood pressure closely. Obesity, BMI 32 DREA RIVERO MD Apr 04, 2022 09:16
[2022-04-04] MEDS: PANTOPRAZOLE 40 MG (PROTONIX) VIAL IV SCH ×2 (10:54→21:27)
[2022-04-04] MEDS ORDERED: MAGNESIUM CITRATE 300 ML BTL PO ONE (11:00)
[2022-04-04] MEDS ORDERED: IBUP-2473 PO (11:59)
[2022-04-04] MEDS ORDERED: FLUT9.9S NS (12:00)
[2022-04-04 16:27] LABS: HEPATITIS C ANTIBODY C Reactive (Non-Reactive)
--- NOTE | 2022-04-04 17:07 | Progress Note ---
Subjective Date Seen by a Provider: Apr 04, 2022 Time Seen by a Provider: 16:30 Subjective/Events-last exam doing ok. tolerating diet. no signs clinical bleeding. Objective Exam Vital Signs Date Time Temp Pulse Resp B/P (MAP) Pulse Ox O2 Delivery O2 Flow Rate FiO2 04/04/22 16:03 37.6 95 22 119/68 (85) 97 Room Air 04/04/22 12:00 37.8 94 20 132/73 (92) 97 Room Air 04/04/22 11:28 Room Air 04/04/22 09:00 75 38 140/108 (119) 98 Room Air 04/04/22 08:00 Room Air 04/04/22 08:00 Nasal Cannula 2.00 04/04/22 07:48 84 04/04/22 06:00 72 171/84 (113) 95 Nasal Cannula 2.00 04/04/22 05:00 80 156/79 (104) 95 Nasal Cannula 2.00 04/04/22 04:00 82 13 154/83 (106) 95 Nasal Cannula 2.00 04/04/22 04:00 Nasal Cannula 2.00 04/04/22 03:50 90 27 153/101 (118) 96 Nasal Cannula 2.00 04/04/22 02:00 80 19 93 Nasal Cannula 2.00 04/04/22 01:09 89 26 153/74 (100) 96 Nasal Cannula 2.00 04/04/22 01:00 89 04/04/22 00:00 Nasal Cannula 2.00 04/04/22 00:00 88 20 96 Nasal Cannula 2.00 04/03/22 23:00 90 17 122/74 (99) 95 Nasal Cannula 2.00 04/03/22 22:30 73 17 185/82 (117) 94 Nasal Cannula 2.00 04/03/22 21:00 82 38 173/78 (114) 93 Nasal Cannula 2.00 04/03/22 20:11 96 Nasal Cannula 2.00 04/03/22 20:00 82 14 177/86 (111) 96 Nasal Cannula 2.00 04/03/22 20:00 Nasal Cannula 2.00 04/03/22 20:00 36.9 04/03/22 19:00 77 04/03/22 19:00 75 156/69 (94) 96 Nasal Cannula 2.00 04/03/22 18:25 37.0 87 15 151/68 95 Nasal Cannula 2.00 04/03/22 18:00 80 12 144/81 (102) 96 Nasal Cannula 2.00 04/03/22 17:09 37.0 80 14 156/70 94 Nasal Cannula 2.00 I & O 04/04/22 07:00 Intake Total 2795.2 ml Output Total 1415 ml Balance 1380.2 ml Capillary Refill : Less Than 3 Seconds General Appearance: No Apparent Distress HEENT: PERRL/EOMI Neck: Full Range of Motion Respiratory: Chest Non Tender, Lungs Clear, Normal Breath Sounds Cardiovascular: Regular Rate, Rhythm Gastrointestinal: normal bowel sounds, non tender, soft Extremity: Normal Capillary Refill Neurologic/Psychiatric: Alert, Oriented x3 Skin: Normal Color Lymphatic: No Adenopathy Results Lab Laboratory Tests 04/03/22 18:18: Glucometer 165H 04/03/22 20:58: Glucometer 164H 04/04/22 05:10: White Blood Count 2.7L, Red Blood Count 2.76L, Hemoglobin 7.7L, Hematocrit 25L, Mean Corpuscular Volume 89, Mean Corpuscular Hemoglobin 28, Mean Corpuscular Hemoglobin Concent 31L, Red Cell Distribution Width 16.4H, Platelet Count 26*L, Mean Platelet Volume , Immature Granulocyte % (Auto) 1, Neutrophils (%) (Auto) 63, Lymphocytes (%) (Auto) 24, Monocytes (%) (Auto) 11, Eosinophils (%) (Auto) 1, Basophils (%) (Auto) 1, Neutrophils # (Auto) 1.7L, Lymphocytes # (Auto) 0.6L, Monocytes # (Auto) 0.3, Eosinophils # (Auto) 0.0, Basophils # (Auto) 0.0, Immature Granulocyte # (Auto) 0.0, Sodium Level 136, Potassium Level 3.6, Chloride Level 107, Carbon Dioxide Level 20L, Anion Gap 9, Blood Urea Nitrogen 9, Creatinine 0.74, Estimat Glomerular Filtration Rate 115, BUN/Creatinine Ratio 12, Glucose Level 104, Calcium Level 7.6L, Corrected Calcium 8.6, Phosphorus Level 2.3, Magnesium Level 1.9, Total Bilirubin 5.0H, Aspartate Amino Transf (AST/SGOT) 134H, Alanine Aminotransferase (ALT/SGPT) 65H, Alkaline Phosphatase 112, Total Protein 6.4, Albumin 2.7L 04/04/22 11:53: Glucometer 123H 04/04/22 15:12: Stool Occult Blood Immunoassay POSITIVEH 04/04/22 16:03: Glucometer 169H Microbiology 04/03/22 MRSA Screen - Final, Complete MRSA not isolated Assessment/Plan Assessment/Plan Assess & Plan/Chief Complaint alcoholism with liver cirrhosis and liver failure with anemia. schedule EGD for colonoscopy for monday. GUNNAR BOWER MD Apr 04, 2022 17:07
--- NOTE | 2022-04-04 17:55 | Progress Note-Pre Operative ---
Pre-Operative Progress Note H&P Reviewed The H&P was reviewed, patient examined and no changes noted. Date Seen by Provider: Apr 04, 2022 Time Seen by Provider: 17:00 Date H&P Reviewed: Apr 04, 2022 Time H&P Reviewed: 17:00 Pre-Operative Diagnosis: anemia with hx liver cirrhosis/failure GUNNAR BOWER MD Apr 04, 2022 17:55
[2022-04-04] MEDS ORDERED: cefTRIAXone 2,000 MG in NS (IVPB) 50 ML IV SCH (20:15)
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
[2022-04-05] VITALS: BP 122/67
[2022-04-05 04:00] VITALS: BP 121/69
[2022-04-05 06:09] LABS: HEMOGLOBIN 7.6 g/dL (13.3-17.7); LYMPHOCYTES # (AUTO) 0.7 10^3/uL (1.0-4.0); MEAN CORPUSCULAR VOLUME 90 fL (80-99)
[2022-04-05 06:12] LABS: BASOPHILS % (AUTO) 1 % (0-10); EOSINOPHILS # (AUTO) 0.1 10^3/uL (0.0-0.3); EOSINOPHILS % (AUTO) 3 % (0-10); HEMATOCRIT 24 % (40-54); LYMPHOCYTES % (AUTO) 23 % (12-44); MEAN CORPUSCULAR HEMOGLOBIN 28 pg (25-34); MEAN CORPUSCULAR HGB CONC 31 g/dL (32-36); MONOCYTES # (AUTO) 0.3 10^3/uL (0.0-1.0); MONOCYTES % (AUTO) 11 % (0-12); NEUTROPHILS # (AUTO) 1.8 10^3/uL (1.8-7.8); NEUTROPHILS % (AUTO) 61 % (42-75)
[2022-04-05] MEDS: inSUlin ASPART (NovoLOG) 1 UNIT/0.01 ML (CHARGE PER UNIT) SC SCH ×2 (06:17→11:12)
[2022-04-05 06:23] LABS: ALBUMIN 2.5 GM/DL (3.2-4.5)
[2022-04-05 06:24] LABS: PLATELET COUNT 20 10^3/uL (130-400); POTASSIUM 3.7 MMOL/L (3.6-5.0)
[2022-04-05 06:25] LABS: CALCIUM 7.6 MG/DL (8.5-10.1)
[2022-04-05 06:26] LABS: TOTAL PROTEIN 6.2 GM/DL (6.4-8.2)
[2022-04-05 06:28] LABS: BILIRUBIN,TOTAL 5.3 MG/DL (0.1-1.0)
[2022-04-05 06:30] LABS: CREATININE SERUM 0.76 MG/DL (0.60-1.30)
[2022-04-05 07:35] VITALS: BP 109/62
--- NOTE | 2022-04-05 08:48 | Cardiology Progress Note ---
Subjective Date Seen by Provider: Apr 05, 2022 Time Seen by Provider: 08:44 Subjective/Events-last exam Patient was seen at bedside, laying down in bed, tired. No new complaint. Feeling better. Review of Systems General: No Chills, No Night Sweats; Fatigue, Malaise; No Appetite, No Other HEENT: No Head Aches, No Visual Changes, No Eye Pain, No Ear Pain, No Dysphasi a, No Sinus Congestion, No Post Nasal Drip, No Sore Throat, No Other Pulmonary: No Dyspnea, No Cough, No Pleuritic Chest Pain, No Other Cardiovascular: No: Chest Pain, Palpitations, Orthopnea, Paroxysmal Noc. Dyspnea, Edema, Lt Headedness, Other Objective-Cardiology Exam Last Set of Vital Signs Vital Signs 04/04/22 04/05/22 08:00 07:35 Temp 37.2 Pulse 95 Resp 20 B/P (MAP) 109/62 (78) Pulse Ox 97 O2 Delivery Room Air O2 Flow Rate 2.00 I&O Intake and Output 04/05/22 00:00 Intake Total 930 ml Output Total 640 ml Balance 290 ml Intake Oral 880 ml IV Total 50 ml Output Urine Total 640 ml # Voids 6 # Bowel Movements 7 General: Alert, Oriented X3, Cooperative HEENT: Atraumatic, PERRLA Neck: Supple, No JVD, No Thyromegaly Lungs: Clear to Auscultation, Normal Air Movement Heart: Regular Rate, Normal S1, Normal S2, No Murmurs Abdomen: Normal Bowel Sounds, Soft, No Tenderness, No Hepatosplenomegaly, No Masses Extremities: No Clubbing, No Cyanosis, No Edema, Normal Pulses, No Tenderness/Swelling Skin: No Rashes, No Breakdown, No Significant Lesion Neuro: Normal Gait, Normal Speech, Strength at 5/5 X4 Ext, Normal Tone, Sensation Intact Psych/Mental Status: Mental Status NL, Mood NL Results Lab Laboratory Tests 04/05/22 05:43 A/P-Cardiology Admission Diagnosis Palpitation Alcohol intoxication Type II myocardial infarction Hypertension Assessment/Plan Palpitation, sinus tachycardia. Reporting history of anxiety and panic attack Heart rate is better at this time. Continue to monitor Elevated troponin level. Probably secondary to tachycardia, anemia and alcoholism. He is 46 years old and no acute EKG changes. Continue to monitor the trend of the troponin. Cannot tolerate aggressive anticoagulation due to active bleeding Pancytopenia, probably secondary to alcoholism. Possible vitamin B12 deficiency, managed by primary care team. Epistaxis and hemoptysis. Worsening anemia. Receiving blood transfusion. Continue to monitor closely. 2D echo was done on April 03, 2022 showing moderate left ventricular hypertrophy with normal systolic function, ejection fraction 60%. Estimated pulmonary artery pressure of 30 to 35 mmHg Alcohol intoxication. History of heavy alcoholism, relapsed back to alcoholism recently. Managed by medical team Hepatic cirrhosis, alcoholic liver disease. Managed by medical team. Hypertension, monitor blood pressure closely. Obesity, BMI 32 DREA RIVERO MD Apr 05, 2022 08:48
[2022-04-05] MEDS: THIAMINE INJECTION 100 MG, FOLIC ACID INJECTION 1 MG, MAGNESIUM SULFATE 2 GM, VITAMIN M... IV SCH ×5 (09:26)
[2022-04-05] MEDS: PANTOPRAZOLE 40 MG (PROTONIX) VIAL IV SCH (09:26)
[2022-04-05 11:23] VITALS: BP 109/62
--- NOTE | 2022-04-05 17:21 | Discharge Summary ---
Discharge Summary Hospital Course Problems/Dx: (1) End stage liver disease Status: Acute (2) Pancytopenia Status: Acute (3) Alcoholic liver failure Status: Acute (4) Hepatitis C (5) GI bleed Status: Acute (6) Obesity Status: Chronic (7) Alcohol intoxication Status: Acute Qualifiers: Qualified Codes: F10.920 - Alcohol use, unspecified with intoxication, uncomplicated (8) Elevated troponin Status: Acute Hospital Course Date of Admission: Apr 03, 2022 at 04:45 Admission Diagnosis : Family Physician/Provider: No,Local Physician Date of Discharge: 04/05/22 Discharge Diagnosis: [ ] Hospital Course: [ ] Labs and Pending Lab Test: Laboratory Tests 04/04/22 18:26: Vitamin B12 Level [Pending], Folate [Pending], Hepatitis C RNA (PCR) IUs/ml [Pending], Hepatitis C RNA (PCR) log IUs/ml [Pending] 04/04/22 20:31: Glucometer 149H 04/05/22 05:43: White Blood Count 3.0L, Red Blood Count 2.71L, Hemoglobin 7.6L, Hematocrit 24L, Mean Corpuscular Volume 90, Mean Corpuscular Hemoglobin 28, Mean Corpuscular Hemoglobin Concent 31L, Red Cell Distribution Width 16.6H, Platelet Count 20*L, Mean Platelet Volume , Immature Granulocyte % (Auto) 1, Neutrophils (%) (Auto) 61, Lymphocytes (%) (Auto) 23, Monocytes (%) (Auto) 11, Eosinophils (%) (Auto) 3, Basophils (%) (Auto) 1, Neutrophils # (Auto) 1.8, Lymphocytes # (Auto) 0.7L, Monocytes # (Auto) 0.3, Eosinophils # (Auto) 0.1, Basophils # (Auto) 0.0, Immature Granulocyte # (Auto) 0.0, Percent Immature Platelet Fraction 8.7H, Sodium Level 134L, Potassium Level 3.7, Chloride Level 105, Carbon Dioxide Level 21, Anion Gap 8, Blood Urea Nitrogen 10, Creatinine 0.76, Estimat Glomerular Filtration Rate 114, BUN/Creatinine Ratio 13, Glucose Level 106H, Calcium Level 7.6L, Corrected Calcium 8.8, Total Bilirubin 5.3H, Aspartate Amino Transf (AST/SGOT) 105H, Alanine Aminotransferase (ALT/SGPT) 58H, Alkaline Phosphatase 103, Total Protein 6.2L, Albumin 2.5L 04/05/22 06:02: Glucometer 105 04/05/22 16:32: Lab Scanned Report Transfusion Reaction Form Microbiology 04/03/22 MRSA Screen - Final, Complete MRSA not isolated Home Meds Active Reported Flonase Allergy Relief (Fluticasone Propionate) 50 Mcg/Actuation Angie.susp 2 Angie NS DAILY PRN Ibuprofen 200 Mg Tablet 400-600 Mg PO Q6H PRN TAKES 2-3 (200MG) TABS Lisinopril 20 Mg Tablet 20 Mg PO BID Gabapentin 400 Mg Capsule 400 Mg PO TID Furosemide 20 Mg Tablet 20 Mg PO DAILY Discharge Physical Examination Vital Signs Vital Signs Date Time Temp Pulse Resp B/P (MAP) Pulse Ox O2 Delivery O2 Flow Rate FiO2 04/05/22 11:23 37.2 95 20 109/62 97 Room Air 04/04/22 08:00 2.00 General Appearance: No Apparent Distress, Chronically ill, Obese Respiratory: No Respiratory Distress, Decreased Breath Sounds Cardiovascular: Regular Rate, Rhythm, No Murmur Gastrointestinal: Normal Bowel Sounds, Soft Extremity: Non Tender, No Pedal Edema Skin: Warm/Dry, Jaundice Neurologic/Psychiatric: Alert, Other (irritable, agitated) Allergies: Coded Allergies: No Known Drug Allergies (Unverified , 07/07/20) Copy Copies To 1: [facility] [place] Dis[place] Summary Date of Admission Apr 03, 2022 at 04:45 Date of Discharge Apr 05, 2022 at 11:10 Discharge Date: Apr 05, 2022 Discharge Time: 11:10 Admission Diagnosis Presumed GI bleed Consults/Procedures Consulations Surgery Cardiology Discharge Diagnosis End stage liver disease Alcohol intoxication with history of alcohol dependence Hepatitis C GI bleed Pancytopenia (1) End stage liver disease Status: Acute (2) Pancytopenia Status: Acute (3) Alcoholic liver failure Status: Acute (4) Hepatitis C (5) GI bleed Status: Acute (6) Obesity Status: Chronic (7) Alcohol intoxication Status: Acute Qualifiers: Qualified Codes: F10.920 - Alcohol use, unspecified with intoxication, uncomplicated (8) Elevated troponin Status: Acute BARBARA PETERSON MD Apr 05, 2022 17:21
--- NOTE | 2022-04-06 11:27 | Physician Query Clarification ---
PQ-Further Specificity Admission/Discharge Admission Date: Apr 03, 2022 at 04:45 Discharge Date: Apr 05, 2022 at 11:10 , The medical record reflects the following clinical scenario: History/Risk Factors: alcoholism, alcoholic cirrhosis of the liver, MI2, pancytopenia, GIB Clinical Findings: WBC 3.6, Hgb 7.0, Plt 21, AST 154, ALT 72, epistaxis, hemoptysis Treatment: 2U PRBC's, 1U Platelets, IVF, IV Thiamine Question: Can you further specify the condition primarily responsible for inpatient admission after study per the clinical indicators above? Please document a response in the Progress Notes or Discharge Summary. 1. GIB 2. Pancytopenia 3. ESLD 4. Alcoholic cirrhosis of the liver 5. Alcoholism w/intoxication 6. Other, with explanation of the clinical findings. 7. Clinically undetermined, no explanation for the clinical findings. PHYSICIAN RESPONSE Can you specify per above: 1 In responding to this query, please exercise your independent professional judgment. The purpose of this communication is to more accurately reflect the complexity of your patients condition. The fact that a question is asked does not imply that any particular answer is desired or expected. Thank you for your timely response to this clarification. Requestors name: Jyothi THIS PHYSICIAN QUERY FORM IS A PERMANENT PART OF THE MEDICAL RECORD JYOTHI BARBOSA Apr 06, 2022 11:27 BARBARA PETERSON MD Apr 08, 2022 22:24
== END 2022-04-05 11:10 | disposition left against medical advice (07) | DRG 377 ==
LOC: EDUNIT# 01:35 → ER 01:39 → ICU 04:45 → 4TH 04-04 11:04
PROVIDERS: ADMIT Family Medicine; ATTEND Internal Medicine
DX: K92.2 Gastrointestinal hemorrhage, unspecified (principal); I21.A1 Myocardial infarction type 2; D68.4 Acquired coagulation factor deficiency; D61.818 Other pancytopenia; R04.2 Hemoptysis; Z68.41 Body mass index [BMI] 40.0-44.9, adult; F10.229 Alcohol dependence with intoxication, unspecified; F41.0 Panic disorder [episodic paroxysmal anxiety]; Z20.822 Contact with and (suspected) exposure to COVID-19; K70.30 Alcoholic cirrhosis of liver without ascites; K72.10 Chronic hepatic failure without coma; B19.20 Unspecified viral hepatitis C without hepatic coma; R04.0 Epistaxis; R31.29 Other microscopic hematuria; E11.65 Type 2 diabetes mellitus with hyperglycemia; R07.89 Other chest pain; I10 Essential (primary) hypertension; F17.210 Nicotine dependence, cigarettes, uncomplicated; F17.290 Nicotine dependence, other tobacco product, uncomplicated; F12.90 Cannabis use, unspecified, uncomplicated; Z86.16 Personal history of COVID-19; E66.9 Obesity, unspecified; Y90.8 Blood alcohol level of 240 mg/100 ml or more
CPT/HCPCS: 36415; 36430; 71045; 71275; 74177; 80053; 80074; 80306; 80320; 80329; 81000; 82010; 82150; 82274; 82550; 82553; 82607; 82746; 82947; 83036; 83690; 83735; 83880; 84100; 84443; 84484; 85025; 85027; 85379; 85610; 85730; 86703; 86850; 86900; 86901; 86920; 87081; 87522; 87636; 93005; 93041; 93306; G0378

== ENCOUNTER 2022-05-27 08:13 | Inpatient (IN) | payer OTHER ==
[~2022-05-27] VITALS: Ht 187.9 cm; Wt 171.6 kg
[~2022-05-27 08:13] MED LIST: FLUT9.9S NS; FURO20TA4 PO; GABA-490 PO; GABA300S2 PO; IBUP-2473 PO; LISI20TA26 PO; MAGN200T8 PO; NALT50TA PO; PNT400TCR PO; VENL-48 PO
--- NOTE | 2022-05-27 08:37 | ED Psychosocial ---
General Chief Complaint: Substance Abuse Stated Complaint: ETOH ABUSE Source: patient, family (mother) Exam Limitations: intoxication History of Present Illness Date Seen by Provider: May 27, 2022 Time Seen by Provider: 08:35 Initial Comments Patient is a 46-year-old male who states that he is a longstanding alcoholic with periods of sobriety lasting 1 months to 3 months. Recently from his . Brought to the emergency room by ambulance after apparently his mother called. He has been in a hotel room for the last couple of days. He has been laying in bed covered in feces. He states he was recently served divorce papers. 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 He denies being suicidal. He states he does not want to . Apparently has a history of chronic liver disease due to his alcoholism. HPI, review of systems, past medical family and social history limited due to the patient's apparent intoxication Timing/Duration: other (unknown time of onset) Associated Symptoms: ingestion (alcohol) Allergies and Home Medications Allergies Coded Allergies: No Known Drug Allergies (Unverified , 07/07/20) Patient Home Medication List Home Medication List Reviewed: Yes Acetaminophen (Tylenol Extra Strength) 500 Mg Tablet, 1,000 MG PO Q8H PRN for PAIN-MILD (1-4), (Reported) Entered as Reported by: BUSHRA DILLARD on 05/27/221447 Last Action: Held Fluticasone Propionate (Flonase Allergy Relief) 50 Mcg/Actuation [place].susp, 1 SPRAY NS BID, (Reported) Entered as Reported by: ANIVAL COLE on 04/04/22 1200 Last Action: Converted Furosemide (Furosemide) 20 Mg Tablet, 20 MG PO DAILY, (Reported) Entered as Reported by: DORETHA LENZ on 04/03/22 1414 Last Action: Held Gabapentin (Neurontin) 300 Mg Capsule, 300 MG PO TID, (Reported) Entered as Reported by: BUSHRA DILLARD on 05/27/22 144 Last Action: Held Ibuprofen (Ibuprofen) 200 Mg Tablet, 400-600 MG PO Q6H PRN for PAIN-MILD (1-4), (Reported) Entered as Reported by: ANIVAL COLE on 04/04/22 1159 Last Action: Held Lisinopril (Lisinopril) 40 Mg Tablet, 40 MG PO DAILY, (Reported) Entered as Reported by: BUSHRA DILLARD on 05/27/22 1448 Last Action: Held Discontinued Medications Gabapentin (Gabapentin) 400 Mg Capsule, 400 MG PO TID, (Reported) Discontinued Reason: Prescription changed Entered as Reported by: DORETHA LENZ on 04/03/22 1414 Lisinopril (Lisinopril) 20 Mg Tablet, 20 MG PO BID, (Reported) Discontinued Reason: Prescription changed Entered as Reported by: DORETHA LENZ on 04/03/22 1414 Review of Systems Constitutional: see HPI Psychiatric/Neurological: Other (denies Suicidal ideation) Review of systems limited secondary to the patient's degree of intoxication Past [id number] Hx Immunizations Up To Date First/Initial COVID19 Vaccinat: Nov 2020 Second COVID19 Vaccination Nakul: December 2020 Past Medical History Surgeries: No Respiratory: No Cardiac: Yes Hypertension Neurological: No Genitourinary: No Gastrointestinal: No Musculoskeletal: No Endocrine: No HEENT: No Cancer: No Psychosocial: Yes Sleep Difficulties Integumentary: No Blood Disorders: No Physical Exam Vital Signs - First Documented 05/27/22 05/27/22 08:13 14:34 Temp 36.0 Pulse 98 Resp 16 B/P (MAP) 149/78 Pulse Ox 98 O2 Delivery OxyMask O2 Flow Rate 2.00 Capillary Refill : Height, Weight, BMI Height: '" Weight: lbs. oz. kg; 42.71 BMI Method: General Appearance: no apparent distress HEENT: PERRL/EOMI, other (conjunctiva are pink) Respiratory: lungs clear, normal breath sounds, no respiratory distress, no accessory muscle use Cardiovascular: regular rate, rhythm Gastrointestinal: soft, other (morbidly obese) Extremities: normal range of motion, non-tender, normal inspection Neurologic/Psychiatric: alert, other (obviously intoxicated) Appearance/Memory: disheveled (covered in diarrhea feces on arrival) Behavior/Eye Contact: cooperative, good eye contact, other (slurred speech) Thoughts/Hallucinations: no apparent hallucination Skin: normal color, warm/dry Suicide Risk Suicide Risk Suicide Risk Level / RN Screen: Low Low Suicide Risk Level []Suicidal Ideation WITHOUT method, intent, plan or behavior more than a month ago []]Modifiable risk factors and strong protective factors []No reported history of suicidal ideation or behavior []Patient reports/exhibits symptoms consistent with psychosis []Patient reports a plan that would be unrealistic/impossible to complete and intent []Suicide attempt prior to arrival (Indicates at LEAST Low Suicide Risk, consider other risk factors) Moderate Suicide Risk Level: []Suicidal ideation with method, WITHOUT plan, intent or behavior in the past month []Multiple risk factors and few protective factors []Patient reports intent to follow through on plan to end life if allowed to leave hospital, and has attempted to elope from the hospital High Suicide Risk Level: [] Suicidal ideation with intent or intent with a plan in the past month [] Patient has harmed self or attempted suicide while in the hospital [] Patient has hx of or current Command Auditory hallucinations to harm self or others that they follow without hesitation [] Patient refuses to disclose plan, and indicates intent to complete [] Patient reports plan that is possible to accomplish and/or has means to complete Risk factors supporting recommendation: [] Non-compliance with treatment (acute or chronic) [] Patient has access to or owns firearms and/or stockpiled medications [] Hx Impulsive behavior [] Pending incarceration or homelessness [] Sexual abuse [] Family history and/or exposure to suicide [] Adverse childhood experiences [] Exposure to violence or negative socio-political cultural, and economic forces [] Current or hx of substance use/abuse [] Chronic physical pain or other acute medical problem (AIDS, COPD, Cancer, etc) [] Perceived burden on family or others [] Patient has attempted to elope [] Unable to answer and/or unable to identify [] Refuses to agree to a safety plan Protective Factors supporting recommendation: [] Identifies reasons for living [] Future plans/goals [] Engaged in work or School [] Good family support network [] Good social support network [] Responsibility to family [] Belief that suicide is immoral, against their restoration beliefs [] High spirituality and involvement in pentecostal community [] Fear of or dying due to pain and suffering [] Established outpt psychiatric services [] Unable to answer and/or unable to identify Risk Assessment Tool Score: Low Progress/Results/Core Measures Results/Orders Lab Results Laboratory Tests Test 05/28/22 10:53 05/28/22 16:27 05/28/22 21:13 05/29/22 04:44 Range/Units Glucometer 121 H 124 H 143 H 70-110 MG/DL White Blood Count 3.1 L 4.3-11.0 10^3/uL Red Blood Count 1.86 L 4.30-5.52 10^6/uL Hemoglobin 5.2 *L 13.3-17.7 g/dL Hematocrit 17 *L 40-54 % Mean Corpuscular Volume 94 80-99 fL Mean Corpuscular Hemoglobin 28 25-34 pg Mean Corpuscular Hemoglobin Concent 30 L 32-36 g/dL Red Cell Distribution Width 22.9 H 10.0-14.5 % Platelet Count 19 *L 130-400 10^3/uL Mean Platelet Volume 9.0-12.2 fL Immature Granulocyte % (Auto) 0 % Neutrophils (%) (Auto) 62 42-75 % Lymphocytes (%) (Auto) 23 12-44 % Monocytes (%) (Auto) 11 0-12 % Eosinophils (%) (Auto) 3 0-10 % Basophils (%) (Auto) 0 0-10 % Neutrophils # (Auto) 1.8 1.8-7.8 10^3/uL Lymphocytes # (Auto) 0.7 L 1.0-4.0 10^3/uL Monocytes # (Auto) 0.3 0.0-1.0 10^3/uL Eosinophils # (Auto) 0.1 0.0-0.3 10^3/uL Basophils # (Auto) 0.0 0.0-0.1 10^3/uL Immature Granulocyte # (Auto) 0.0 0.0-0.1 10^3/uL Neutrophils % (Manual) 68 % Lymphocytes % (Manual) 21 % Monocytes % (Manual) 1 % Eosinophils % (Manual) 7 % Basophils % (Manual) 3 % Smudge Cells MOD Percent Immature Platelet Fraction 6.5 0.0-7.6 % Polychromasia SLIGHT Hypochromasia MODERATE Target Cells MODERATE Tear Drop Cells SLIGHT Absolute Reticulocyte Count 107 H 24-90 10e9/uL Percent Reticulocyte Count 5.71 H 0.50-2.40 % Prothrombin Time 22.4 H 12.2-14.7 SEC INR Comment 1.9 H 0.8-1.4 Sodium Level 137 135-145 MMOL/L Potassium Level 3.4 L 3.6-5.0 MMOL/L Chloride Level 107 98-107 MMOL/L Carbon Dioxide Level 21 21-32 MMOL/L Anion Gap 9 5-14 MMOL/L Blood Urea Nitrogen 18 7-18 MG/DL Creatinine 0.70 0.60-1.30 MG/DL Estimat Glomerular Filtration Rate 117 BUN/Creatinine Ratio 26 Glucose Level 110 H 70-105 MG/DL Calcium Level 7.1 L 8.5-10.1 MG/DL Magnesium Level 1.4 L 1.6-2.4 MG/DL Smear Scan Test 05/29/22 10:50 05/29/22 10:51 05/29/22 15:17 05/29/22 20:15 Range/Units Haptoglobin <8.0 L 37.0-184.0 mg/dL Prothrombin Time 21.2 H 12.2-14.7 SEC INR Comment 1.8 H 0.8-1.4 Activated Partial Thromboplast Time 41 H 24-35 SEC Fibrinogen 140 L 221-496 MG/DL D-Dimer 3.14 H 0.00-0.49 UG/ML Total Bilirubin 7.0 H 0.1-1.0 MG/DL Lactate Dehydrogenase 347 H 125-220 U/L Glucometer 122 H 130 H 119 H 70-110 MG/DL Test 05/30/22 04:30 Range/Units White Blood Count 3.4 L 4.3-11.0 10^3/uL Red Blood Count 2.23 L 4.30-5.52 10^6/uL Hemoglobin 6.2 *L 13.3-17.7 g/dL Hematocrit 20 *L 40-54 % Mean Corpuscular Volume 91 80-99 fL Mean Corpuscular Hemoglobin 28 25-34 pg Mean Corpuscular Hemoglobin Concent 31 L 32-36 g/dL Red Cell Distribution Width 21.7 H 10.0-14.5 % Platelet Count 22 *L 130-400 10^3/uL Mean Platelet Volume 9.0-12.2 fL Percent Immature Platelet Fraction 5.8 0.0-7.6 % Sodium Level 138 135-145 MMOL/L Potassium Level 3.5 L 3.6-5.0 MMOL/L Chloride Level 107 98-107 MMOL/L Carbon Dioxide Level 22 21-32 MMOL/L Anion Gap 9 5-14 MMOL/L Blood Urea Nitrogen 14 7-18 MG/DL Creatinine 0.70 0.60-1.30 MG/DL Estimat Glomerular Filtration Rate 117 BUN/Creatinine Ratio 20 Glucose Level 109 H 70-105 MG/DL Calcium Level 7.4 L 8.5-10.1 MG/DL Magnesium Level 1.5 L 1.6-2.4 MG/DL My Orders Medications Given in ED Vital Signs/I&O 05/29/22 05/29/22 05/29/22 05/29/22 19:00 19:00 19:16 20:00 Temp 36.9 Pulse 108 108 108 Resp 35 15 B/P (MAP) 156/94 (114) 169/107 (127) Pulse Ox 93 100 O2 Delivery Nasal Cannula Nasal Cannula O2 Flow Rate 2.00 2.00 05/29/22 05/29/22 05/29/22 05/30/22 21:06 22:14 23:30 00:00 Pulse 107 101 111 Resp 22 B/P (MAP) 169/78 (108) 142/89 (98) 156/79 (106) Pulse Ox 98 96 91 97 O2 Delivery Nasal Cannula Nasal Cannula Nasal Cannula Nasal Cannula O2 Flow Rate 2.00 2.00 2.00 2.00 05/30/22 05/30/22 05/30/22 05/30/22 00:00 01:00 01:06 01:30 Temp 36.9 Pulse 107 106 Resp 15 B/P (MAP) 141/75 (97) Pulse Ox 98 98 O2 Delivery Nasal Cannula Nasal Cannula O2 Flow Rate 2.00 2.00 05/30/22 05/30/22 05/30/22 05/30/22 02:00 03:00 04:00 04:00 Temp 37.0 Pulse 96 109 106 Resp 32 23 23 B/P (MAP) 139/74 (92) 144/75 (92) 142/73 (96) Pulse Ox 87 96 96 O2 Delivery Nasal Cannula Nasal Cannula Nasal Cannula O2 Flow Rate 2.00 2.00 2.00 05/30/22 05/30/22 05/30/22 05:06 06:37 06:45 Temp 37.1 37.1 Pulse 103 103 Resp 19 18 B/P (MAP) 171/79 165/95 Pulse Ox 98 96 96 O2 Delivery Nasal Cannula Room Air O2 Flow Rate 2.00 Progress Progress Note : Time: 09:17 Progress Note notified by lab of Hgb 6.7 Initial ECG Impression Date: May 27, 2022 Initial ECG Impression Time: 09:10 Initial ECG Rate: 95 Initial ECG Rhythm: Normal Sinus Initial ECG Intervals: Normal Comment Nonspecific ST-T waves inferiorly, no ectopy is noted, poor R wave progression over the precordium, no ST segment elevation or depression Departure Communication (Admissions) Time/Spoke to Admitting Phy: 11:[address] Bello Impression Primary Impression: Acute alcohol intoxication Qualified Codes: F10.929 - Alcohol use, unspecified with intoxication, unspecified Additional Impressions: Anemia Qualified Codes: D64.9 - Anemia, unspecified Chronic liver disease due to alcohol Disposition: ADMITTED INPATIENT Condition: Stable Admissions Decision to Admit Reason: Admit from ER (General) Decision to Admit/Date: May 27, 2022 Time/Decision to Admit Time: 11:57 Departure-Patient Inst. Referrals: NO,LOCAL PHYSICIAN (PCP/Family) Primary Care Physician Patient Instructions: ALCOHOL AND SUBSTANCE ABUSE ANIL GARCIA MD May 27, 2022 08:37
[2022-05-27] MEDS ORDERED: THIAMINE 100 MG (VITAMIN B-1) TAB PO ONE (08:45)
[2022-05-27] MEDS ORDERED: FOLIC ACID 1 MG TAB PO ONE (08:45)
[2022-05-27 08:47] LABS: BASOPHILS # (AUTO) 0.1 10^3/uL (0.0-0.1); BASOPHILS % (AUTO) 1 % (0-10)
[2022-05-27 08:49] LABS: EOSINOPHILS # (AUTO) 0.3 10^3/uL (0.0-0.3); EOSINOPHILS % (AUTO) 3 % (0-10); HEMATOCRIT 21 % (40-54); LYMPHOCYTES # (AUTO) 1.5 10^3/uL (1.0-4.0); LYMPHOCYTES % (AUTO) 18 % (12-44); MEAN CORPUSCULAR HEMOGLOBIN 27 pg (25-34); MEAN CORPUSCULAR HGB CONC 30 g/dL (32-36); MEAN CORPUSCULAR VOLUME 90 fL (80-99); MONOCYTES # (AUTO) 0.5 10^3/uL (0.0-1.0); MONOCYTES % (AUTO) 6 % (0-12); NEUTROPHILS # (AUTO) 5.6 10^3/uL (1.8-7.8); NEUTROPHILS % (AUTO) 68 % (42-75); PLATELET COUNT 56 10^3/uL (130-400); WHITE BLOOD COUNT 8.2 10^3/uL (4.3-11.0)
[2022-05-27 08:52] LABS: HEMOGLOBIN 6.4 g/dL (13.3-17.7)
[2022-05-27 08:59] LABS: CHLORIDE 106 MMOL/L (98-107); SODIUM 139 MMOL/L (135-145)
[2022-05-27 09:00] LABS: ALBUMIN 2.3 GM/DL (3.2-4.5)
[2022-05-27 09:01] LABS: CALCIUM 7.7 MG/DL (8.5-10.1)
[2022-05-27 09:02] LABS: GLUCOSE 167 MG/DL (70-105); TOTAL PROTEIN 6.6 GM/DL (6.4-8.2)
[2022-05-27 09:03] LABS: CARBON DIOXIDE 19 MMOL/L (21-32)
[2022-05-27 09:04] LABS: BILIRUBIN,TOTAL 6.7 MG/DL (0.1-1.0)
[2022-05-27 09:06] LABS: ALKALINE PHOSPHATASE 101 U/L (40-136); CREATININE SERUM 0.72 MG/DL (0.60-1.30); GFR ESTIMATED 116
[2022-05-27 09:07] LABS: BUN/CREATININE RATIO 31
[2022-05-27 09:09] LABS: ALANINE AMINOTRANSFERASE 33 U/L (0-55); MAGNESIUM 1.6 MG/DL (1.6-2.4); SALICYLATE < 5.0 MG/DL (5.0-20.0)
[2022-05-27 09:11] LABS: ACETAMINOPHEN < 10 UG/ML (10-30)
[2022-05-27] MEDS: NS IV 1000 ML 1,000 ML IV SCH ×4 (09:39→18:02)
[2022-05-27] MEDS ORDERED: LIDOCAINE UROJET 2% GEL 10 ML PKG ONE (09:55)
[2022-05-27] MEDS ORDERED: LIDOCAINE UROJET 2% GEL 10 ML PKG TOP ONE (10:00)
[2022-05-27 10:15] LABS: CLARITY,URINE CLEAR; COLOR,URINE ORANGE; GLUCOSE, URINE (UA) NEGATIVE (NEGATIVE); KETONES,URINE TRACE (NEGATIVE); LEUKOCYTE ESTERASE ,URINE NEGATIVE (NEGATIVE); NITRITE,URINE NEGATIVE (NEGATIVE); PROTEIN,URINE TRACE (NEGATIVE)
[2022-05-27 10:27] LABS: BACTERIA,URINE NEGATIVE /HPF; BILIRUBIN,URINE 1+ (NEGATIVE); HYALINE CASTS, URINE 0-2 /LPF; RBC,URINE 0-2 /HPF
[2022-05-27 10:35] LABS: AMPHETAMINE SCREEN, URINE NEGATIVE (NEGATIVE); BARBITURATE SCREEN URINE NEGATIVE (NEGATIVE); BENZODIAZEPINES SCREEN URINE POSITIVE (NEGATIVE); CANNABINOID SCREEN, URINE POSITIVE (NEGATIVE); COCAINE SCREEN URINE NEGATIVE (NEGATIVE); METHADONE STAT NEGATIVE (NEGATIVE); OPIATE SCREEN URINE NEGATIVE (NEGATIVE); OXYCODONE STAT NEGATIVE (NEGATIVE); PROPOXYPHENE STAT NEGATIVE (NEGATIVE); TRICYCLIC ANTIDEPRESSANTS SCRE NEGATIVE (NEGATIVE)
[2022-05-27 11:22] LABS: INR 1.8 (0.8-1.4); PROTHROMBIN TIME PATIENT 21.1 SEC (12.2-14.7)
[2022-05-27] MEDS ORDERED: NS IV 500 ML 500 ML ONE (13:17)
[2022-05-27] MEDS ORDERED: ONDANSETRON 4 MG/2 ML (SDV) Z0FRAN IV PRN ×2 (13:45)
[2022-05-27] MEDS ORDERED: ONDANSETRON 4 MG (ZOFRAN) ORAL DISSOLVE TAB SL PRN (13:45)
[2022-05-27] MEDS ORDERED: MELATONIN 3 MG TABLET PO PRN (13:45)
[2022-05-27] MEDS ORDERED: CALCIUM CARBONATE 500 MG (TUMS) TAB.CHEW PO PRN (13:45)
--- NOTE | 2022-05-27 14:26 | CONSULTATION REPORT ---
DATE OF SERVICE: ATTENDING TELEPHOTO INSTALLER: NANDINI Lockhart. ADMITTING PHYSICIAN: Dr. Bello. HISTORY OF PRESENT ILLNESS: The patient is a 46-year-old male known to us. He was brought to the Emergency Department after the ambulance were called by his mother. He was found in a hotel room and appeared to be unconscious and covered in feces. The patient was also confused. The patient does have a longstanding history of alcoholism. He was seen for similar reasons on 04/03/2022 and treated medically. He was found to have a calculated modified Child-Ward classification grade C, which is a poor prognosis. He does have a history of liver cirrhosis. It is unsure if he does have ascites; however, he does have some level of encephalopathy. He was again found to be anemic with a hemoglobin of 6.4. He is now awake and alert and states that he has noticed dark stools more recently. He does not report any red blood per rectum nor any dark tarry stools. He was instructed to follow up endoscopy; however, never did. PAST MEDICAL HISTORY: Alcoholism, liver failure, liver cirrhosis. PAST SURGICAL HISTORY: None. ALLERGIES: No known drug allergies. MEDICATIONS: None. SOCIAL HISTORY: Current alcohol. Positive smoke. Positive THC. FAMILY HISTORY: Noncontributory. VITAL SIGNS: Temperature 36.0, blood pressure 109/62, pulse 98% on 2 liters nasal cannula. REVIEW OF SYSTEMS: Well-nourished male, awake and alert, does answer the majority of questions appropriately. He is not experiencing any shortness of breath or difficulty breathing. No chest pain, palpitations, diaphoresis. No nausea, vomiting; however, has been unconscious for a few days. He does report that he did notice some darker stools more recently. He does not report any red blood per rectum. No known fever, chills, no recent inadvertent weight loss. All other review of systems negative. PHYSICAL EXAMINATION: CHEST: Scattered wheezes and rhonchi bilaterally. HEART: Regular, no murmurs. EXTREMITIES: +2/3 bilateral lower extremity edema, negative Homans sign. HEENT: No scleral icterus. NECK: No cervical lymphadenopathy. ABDOMEN: Soft, nondistended. There is mild discomfort in the epigastric region on deep palpation. No peritoneal signs. SKIN: Warm, dry. LABORATORY DATA: WBC 8.2, hemoglobin 6.4, hematocrit 21, platelets 56,000. BUN is 22, creatinine 0.72. ASSESSMENT AND PLAN: Acute alcohol intoxication with history of alcoholism and liver cirrhosis. He was again found to be anemic and has had some dark tarry stools, likely consistent with gastritis versus a gastric ulcer. At this time, we will again proceed with medical management with a PPI acid inspector outside production on a b.i.d. basis as well as resuscitation. He again will need to also continue with PPI acid reducers in an oral form as an outpatient; however, due to his history he does need to have both upper and lower endoscopy done at some point. Job ID: [id number] DocumentID: [id number] Dictated Date: 05/27/2022 13:03:44 Curriculum Counselor Date: 05/27/2022 14:25:00 Dictated By: GUNNAR BOWER MD MTDD
[2022-05-27 14:34] VITALS: BP 149/78
--- NOTE | 2022-05-27 14:42 | History & Physical-Hospitalist ---
History of Present Illness HPI/Chief Complaint Patient is a 46-year-old male known to me from previous admission who presented to the emergency department due to alcohol intoxication. He has a long history of alcohol abuse and end-stage liver disease and was here last month with similar. He elected to leave AMA at that time. He is unable to tell me what brought him to the hospital and all history is obtained from the records. His current alcohol level is 374. Per the ER he was recently served divorce papers from his and has been staying in a hotel and doing nothing but drinking. He was found by EMS covered in his own feces and was brought in for evaluation. He was found to have a hemoglobin of 6.4 and he has known anemia but has not followed up with surgery. Source: patient Date Seen 05/27/22 Time Seen by a Provider: 14:00 Attending Physician No,Local Physician PCP Admitting Physician: Marlene Bello MD Attending Physician: Marlene Bello MD Referring Physician Date of Admission May 27, 2022 at 11:59 Home Medications & Allergies Home Medications Reviewed patient Home Medication Reconciliation performed by pharmacy medication reconciliations a&p technician and/or nursing. Patients Allergies have been reviewed. Allergies Allergies Coded Allergies No Known Drug Allergies (Unverified07/07/20) Past Sygsdpi-Uxfjzp-Xjkzwg Hx Patient Social History Marrital Status: Substance use?: Yes Alcohol Use?: Yes Alcohol Frequency: Daily Pt feels they are or have been: No Immunizations Up To Date First/Initial COVID19 Vaccinat: Nov 2020 Second COVID19 Vaccination Nakul: December 2020 Tetanus Booster (TDap): Unknown Current Status Communicates: Verbally Primary Language: Kenyan Preferred Spoken Language: Kenyan Past Medical History Hypertension Sleep Difficulties Blood Disorders: No Review of Systems ROS-Unable to Obtain: acutely intoxicated Constitutional: see HPI Physical Exam Physical Exam Vital Signs Vital Signs - First Documented 05/27/22 05/27/22 08:13 14:34 Temp 36.0 Pulse 98 Resp 16 B/P (MAP) 149/78 Pulse Ox 98 O2 Delivery OxyMask O2 Flow Rate 2.00 Capillary Refill : Greater Than 3 Seconds Height, Weight, BMI Height: '" Weight: lbs. oz. kg; 42.71 BMI Method: General Appearance: Chronically ill, Obese HEENT: PERRL/EOMI, Moist Mucous Membranes; No Scleral Icterus (L), No Scleral Icterus (R) Neck: Normal Inspection, Supple Respiratory: Lungs Clear, No Accessory Muscle Use, No Respiratory Distress Cardiovascular: No JVD, No Murmur, Tachycardia Gastrointestinal: Normal Bowel Sounds, Non Tender, Soft Extremity: Normal Capillary Refill, No Calf Tenderness, No Pedal Edema Neurologic/Psychiatric: Alert, Normal Mood/Affect, Disoriented (was able to state name only) Skin: Normal Color, Pallor, Tattoos/Piercings Results Results/Procedures Labs Laboratory Tests 05/27/22 08:40 05/28/22 05:35 Patient resulted labs reviewed. Assessment/Plan Admission Diagnosis Anemia Admission Status: Inpatient Order (span 2 midnights) Reason for Inpatient Admission: see below Assessment and Plan Anemia profound, likely due to GI losses 1 unit pRBCS ordered PPI ordered Surgery consulted, appreciate recs FOBT+ on last visit Needs EGD and colonoscopy Alcohol intoxication with history of alcohol abuse ESLD- alocholic liver disease Hyperbilirubinemia CIWA protocol MELD score of 18, Child Ward Class C Seizures precautions Monitor in step as is high risk for withdrawal alcohol level 374 on admission conference services manager consulted Hyperglycemia a1c was 4.8 on last admission but may be falsely low due to anemia BS 167 this AM Trend DVT ppx: SCDs only due to anemia Diagnosis/Problems Diagnosis/Problems (1) Anemia Status: Acute Qualifiers: Anemia type: unspecified type Qualified Codes: D64.9 - Anemia, unspecified (2) Acute alcohol intoxication Status: Acute Qualifiers: Complication of substance-induced condition: with unspecified complication Qualified Codes: F10.929 - Alcohol use, unspecified with intoxication, unspecified (3) End stage liver disease Status: Acute (4) Alcoholic liver failure Status: Acute (5) GI bleed Status: Acute (6) Obesity Status: Chronic (7) Hyperglycemia Status: Acute (8) HTN (hypertension) Status: Acute MARLENE BELLO MD May 27, 2022 14:42
[2022-05-27] MEDS ORDERED: GABA300C PO (14:48)
[2022-05-27] MEDS ORDERED: ACET-2267 PO (14:48)
[2022-05-27] MEDS ORDERED: LISI40TA9 PO (14:48)
[2022-05-27 14:54] VITALS: BP 101/69
[2022-05-27] MEDS: inSUlin ASPART (NovoLOG) 1 UNIT/0.01 ML (CHARGE PER UNIT) SC SCH ×2 (16:26→21:48)
[2022-05-27 16:42] VITALS: BP 157/99
[2022-05-27 20:00] VITALS: BP 162/70
[2022-05-27] MEDS: LORazepam 1 MG (ATIVAN) TAB PO PRN ×2 (20:06→22:55)
[2022-05-27] MEDS: PANTOPRAZOLE 40 MG (PROTONIX) VIAL IV SCH (20:23)
[2022-05-28] VITALS (15 sets, daily range): BP systolic 119–176; BP diastolic 59–92
[2022-05-28] MEDS: LORazepam 1 MG (ATIVAN) TAB PO PRN ×4 (02:42→21:03)
[2022-05-28 05:59] LABS: MEAN CORPUSCULAR HEMOGLOBIN 27 pg (25-34); MEAN CORPUSCULAR HGB CONC 30 g/dL (32-36); MEAN CORPUSCULAR VOLUME 92 fL (80-99); PLATELET COUNT 42 10^3/uL (130-400); WHITE BLOOD COUNT 8.3 10^3/uL (4.3-11.0)
[2022-05-28 06:06] LABS: HEMATOCRIT 20 % (40-54); HEMOGLOBIN 5.9 g/dL (13.3-17.7)
[2022-05-28 06:11] LABS: POTASSIUM 3.9 MMOL/L (3.6-5.0)
[2022-05-28 06:12] LABS: CALCIUM 7.6 MG/DL (8.5-10.1)
[2022-05-28 06:17] LABS: CREATININE SERUM 0.67 MG/DL (0.60-1.30)
[2022-05-28] MEDS ORDERED: NS IV 500 ML 500 ML IV SCH (06:30)
[2022-05-28] MEDS: inSUlin ASPART (NovoLOG) 1 UNIT/0.01 ML (CHARGE PER UNIT) SC SCH ×4 (06:50→21:31)
[2022-05-28] MEDS: NS IV 1000 ML 1,000 ML IV SCH ×2 (07:32→21:03)
[2022-05-28] MEDS: PANTOPRAZOLE 40 MG (PROTONIX) VIAL IV SCH ×2 (09:23→21:03)
--- NOTE | 2022-05-28 10:36 | Progress Note - Hospitalist ---
Subjective HPI/CC On Admission Date Seen by Provider: May 28, 2022 Patient is a 46-year-old male known to me from previous admission who presented to the emergency department due to alcohol intoxication. He has a long history of alcohol abuse and end-stage liver disease and was here last month with similar. He elected to leave AMA at that time. He is unable to tell me what brought him to the hospital and [facility] His current alcohol level is 374. Per the ER he was recently served divorce papers from his and has been staying in a hotel and doing nothing but drinking. He was found by EMS covered in his own feces and was brought in for evaluation. He was found to have a hemoglobin of 6.4 and he has known anemia but has not followed up with surgery. Subjective/Events-last exam Patient reports feeling better today. No complaints other than asking for carbonated beverages. We discussed limitations on his diet and he instead asked for "all of the juices" and some ice chips. He does have a long history of withdrawal per his report but has never had a seizure. Objective Exam Vital Signs Vital Signs Date Time Temp Pulse Resp B/P (MAP) Pulse Ox O2 Delivery O2 Flow Rate FiO2 05/28/22 10:27 Nasal Cannula 2.00 05/28/22 09:06 96 05/28/22 08:24 37.1 112 28 139/71 Capillary Refill : Greater Than 3 Seconds General Appearance: No Apparent Distress, Chronically ill, Obese Respiratory: Lungs Clear, No Respiratory Distress Cardiovascular: No Murmur, Tachycardia Gastrointestinal: Normal Bowel Sounds, Non Tender, Soft Skin: Pallor, Tattoos/Piercings Results/Procedures Lab Laboratory Tests 05/28/22 05:35 Patient resulted labs reviewed. Assessment/Plan Assessment and Plan Assess & Plan/Chief Complaint Anemia Hgb 5.9 after 1 unit yesterday (down from 6.4) likely dilutional 1 more unit pRBCS ordered for a total of 2 this admission PPI Surgery consulted, appreciate recs FOBT+ on last visit Needs EGD and colonoscopy Alcohol intoxication with history of alcohol abuse ESLD- alocholic liver disease Hyperbilirubinemia [facility] protocol MELD score of 18, Child Ward Class C Seizures precautions Monitor in stepdown as is high risk for withdrawal- need frequent ativan last night, may need to transfer to ICU for precedex if worsens alcohol level 374 on admission student services vice president consulted Plts trended down slightly to 42 still higher than they were last month Hyperglycemia a1c was 4.8 on last admission but may be falsely low due to anemia BS 127 this AM Trend DVT ppx: SCDs only due to anemia Diagnosis/Problems Diagnosis/Problems (1) Anemia Status: Acute Qualifiers: Anemia type: unspecified type Qualified Codes: D64.9 - Anemia, unspecified (2) Acute alcohol intoxication Status: Acute Qualifiers: Complication of substance-induced condition: with unspecified complication Qualified Codes: F10.929 - Alcohol use, unspecified with intoxication, unspecified (3) End stage liver disease Status: Acute (4) Alcoholic liver failure Status: Acute (5) GI bleed Status: Acute (6) Obesity Status: Chronic (7) Hyperglycemia Status: Acute (8) HTN (hypertension) Status: Acute SARIAH AGUILERA MD May 28, 2022 10:36
[2022-05-28] MEDS ORDERED: THIAMINE 100 MG (VITAMIN B-1) TAB PO NR (10:45)
[2022-05-28] MEDS ORDERED: FOLIC ACID 1 MG TAB PO NR (10:45)
[2022-05-28] MEDS ORDERED: NS IV 500 ML 500 ML IV PRN (10:45)
[2022-05-29] VITALS (25 sets, daily range): BP systolic 101–186; BP diastolic 60–127
[2022-05-29 05:21] LABS: MEAN CORPUSCULAR HEMOGLOBIN 28 pg (25-34); MEAN CORPUSCULAR HGB CONC 30 g/dL (32-36); MEAN CORPUSCULAR VOLUME 94 fL (80-99); WHITE BLOOD COUNT 3.1 10^3/uL (4.3-11.0)
[2022-05-29 05:28] LABS: HEMATOCRIT 17 % (40-54); HEMOGLOBIN 5.2 g/dL (13.3-17.7); PLATELET COUNT 19 10^3/uL (130-400)
[2022-05-29 05:31] LABS: INR 1.9 (0.8-1.4); PROTHROMBIN TIME PATIENT 22.4 SEC (12.2-14.7)
[2022-05-29 05:37] LABS: POTASSIUM 3.4 MMOL/L (3.6-5.0)
[2022-05-29 05:38] LABS: CALCIUM 7.1 MG/DL (8.5-10.1)
[2022-05-29 05:42] LABS: CREATININE SERUM 0.7 MG/DL (0.60-1.30)
[2022-05-29 05:44] LABS: MAGNESIUM 1.4 MG/DL (1.6-2.4)
--- NOTE | 2022-05-29 05:46 | Progress Note ---
Standard Progress Note Progress Notes/Assess & Plan Date Seen by a Provider: May 29, 2022 Time Seen by a Provider: 05:43 Progress/Assessment & Plan called for Hb 5.2 and plt 19k, will give 2 U PRBC and one Uint plts MD DRE Kay,NATALIA Nichols MD May 29, 2022 05:46
[2022-05-29] MEDS ORDERED: NS IV 500 ML 500 ML IV SCH (06:00)
[2022-05-29] MEDS: inSUlin ASPART (NovoLOG) 1 UNIT/0.01 ML (CHARGE PER UNIT) SC SCH ×4 (06:03→20:44)
[2022-05-29] MEDS: KCL 20 MEQ TAB (K-DUR) PO SCH ×2 (06:06→07:26)
[2022-05-29] MEDS: POTASSIUM CL 10MEQ/50ML IVPB 50 ML IV SCH (06:06)
[2022-05-29] MEDS: MAGNESIUM 1 GM/100 ML IVPB 100 ML IV SCH ×3 (06:06→10:41)
[2022-05-29] MEDS ORDERED: KCL 20 MEQ TAB (K-DUR) PO ONE (06:15)
[2022-05-29] MEDS: NS IV 1000 ML 1,000 ML IV SCH ×2 (06:45→15:45)
[2022-05-29] MEDS: THIAMINE 100 MG (VITAMIN B-1) TAB PO SCH (07:28)
--- NOTE | 2022-05-29 08:05 | Tele-ICU Progress Note ---
Progress Note video rounds completed 46 y/o male with hx of alcohol abuse and hx of anemia. Found to have severely low hgb 5.2 and low plts of 19 Order for 2 units PRBC and 1 plts. W/U of anemia in progress PE: sleeping Hr 107 BP: 162/103 O2 sat 100% Focused Exam Height, Weight, BMI Height: '" Weight: lbs. oz. kg; 47.52 BMI Method: Labs Laboratory Tests 05/29/22 04:44 Results Results/Procedures Labs Laboratory Tests 05/27/22 08:40 05/28/22 05:35 05/29/22 04:44 Patient resulted labs reviewed. Results Labs Labs Laboratory Tests 05/28/22 10:53: Glucometer 121H 05/28/22 16:27: Glucometer 124H 05/28/22 21:13: Glucometer 143H 05/29/22 04:44: White Blood Count 3.1L, Red Blood Count 1.86L, Hemoglobin 5.2*L, Hematocrit 17*L , Mean Corpuscular Volume 94, Mean Corpuscular Hemoglobin 28, Mean Corpuscular Hemoglobin Concent 30L, Red Cell Distribution Width 22.9H, Platelet Count 19*L, Mean Platelet Volume , Percent Immature Platelet Fraction 6.5, Prothrombin Time 22.4H, INR Comment 1.9H, Sodium Level 137, Potassium Level 3.4L, Chloride Level 107, Carbon Dioxide Level 21, Anion Gap 9, Blood Urea Nitrogen 18, Creatinine 0.70, Estimat Glomerular Filtration Rate 117, BUN/Creatinine Ratio 26, Glucose Level 110H, Calcium Level 7.1L, Magnesium Level 1.4L NATALIA GUTHRIE MD May 29, 2022 08:05
--- NOTE | 2022-05-29 10:23 | Progress Note - Hospitalist ---
Subjective HPI/CC On Admission Date Seen by Provider: May 29, 2022 Patient is a 46-year-old male known to me from previous admission who presented to the emergency department due to alcohol intoxication. He has a long history of alcohol abuse and end-stage liver disease and was here last month with similar. He elected to leave AMA at that time. He is unable to tell me what brought him to the hospital and all history is obtained from the [facility]. His current alcohol level is 374. Per the ER he was recently served divorce papers from his and has been staying in a hotel and doing nothing but drinking. He was found by EMS covered in his own feces and was brought in for evaluation. He was found to have a hemoglobin of 6.4 and he has known anemia but has not followed up with surgery. Subjective/Events-last exam Pt reports feeling tired. States he didn't slepe much last night and would like to try to sleep today. No specific complaints. Discussed labwork and need for blood and that that would likely help him feel less tired. Objective Exam Vital Signs Vital Signs Date Time Temp Pulse Resp B/P (MAP) Pulse Ox O2 Delivery O2 Flow Rate FiO2 05/29/22 09:51 36.9 109 99 101/81 Room Air 05/29/22 09:06 99 05/29/22 06:00 2.00 Capillary Refill : Greater Than 3 Seconds General Appearance: No Apparent Distress, Chronically ill, Obese Respiratory: Lungs Clear, No Respiratory Distress Cardiovascular: No Murmur, Tachycardia Gastrointestinal: Normal Bowel Sounds, Non Tender, Soft, Distended Neurologic/Psychiatric: Alert, Oriented x3 (to major details only) Skin: No Ecchymosis, No Petechia Results/Procedures Lab Laboratory Tests 05/29/22 04:44 Patient resulted labs reviewed. Assessment/Plan Assessment and Plan Assess & Plan/Chief Complaint Anemia Hgb 5.2 after 2 unit yesterday (down from 6.4 on admission) Originally thought due to dilution but continues to drop Added smear, LDH, haptoglobin, and DIC panel to labs Discussed with Dr Gutierres who will see- will consider a tagged RBC scan 2 more unit pRBCS ordered for a total of 4 this admission PPI Surgery consulted, appreciate recs FOBT+ on last visit Needs EGD and colonoscopy Alcohol intoxication with history of alcohol abuse ESLD- alocholic liver disease Hyperbilirubinemia CIWA protocol MELD score of 18, Child Ward Class C Seizures precautions Monitor in stepdown as is high risk for withdrawal- need frequent ativan last night, may need to transfer to ICU for precedex if worsens alcohol level 374 on admission airfield services officer consulted Plts trended down to 19 smear and DIC panel ordered Hyperglycemia a1c was 4.8 on last admission but may be falsely low due to anemia BS 110 this AM Trend DVT ppx: SCDs only due to anemia Diagnosis/Problems Diagnosis/Problems (1) Anemia Status: Acute Qualifiers: Anemia type: unspecified type Qualified Codes: D64.9 - Anemia, unspecified (2) Acute alcohol intoxication Status: Acute Qualifiers: Complication of substance-induced condition: with unspecified complication Qualified Codes: F10.929 - Alcohol use, unspecified with intoxication, unspecified (3) End stage liver disease Status: Acute (4) Alcoholic liver failure Status: Acute (5) GI bleed Status: Acute (6) Obesity Status: Chronic (7) Hyperglycemia Status: Acute (8) HTN (hypertension) Status: Acute SARIAH AGUILERA MD May 29, 2022 10:23
[2022-05-29] MEDS: FOLIC ACID 1 MG TAB PO SCH (10:34)
[2022-05-29] MEDS: PANTOPRAZOLE 40 MG (PROTONIX) VIAL IV SCH ×2 (10:36→20:44)
[2022-05-29 10:42] LABS: ABSOLUTE RETIC # 107 10e9/uL (24-90); BASOPHILS % (AUTO) 0 % (0-10); EOSINOPHILS # (AUTO) 0.1 10^3/uL (0.0-0.3); EOSINOPHILS % (AUTO) 3 % (0-10); LYMPHOCYTES # (AUTO) 0.7 10^3/uL (1.0-4.0); LYMPHOCYTES % (AUTO) 23 % (12-44); MONOCYTES # (AUTO) 0.3 10^3/uL (0.0-1.0); MONOCYTES % (AUTO) 11 % (0-12); NEUTROPHILS # (AUTO) 1.8 10^3/uL (1.8-7.8); NEUTROPHILS % (AUTO) 62 % (42-75); RETICULOCYTE % 5.71 % (0.50-2.40)
[2022-05-29 11:18] LABS: FIBRIN DEGRADATION PRODUCTS 3.14 UG/ML (0.00-0.49); INR 1.8 (0.8-1.4); PROTHROMBIN TIME PATIENT 21.2 SEC (12.2-14.7)
[2022-05-29 11:33] LABS: NEUTROPHILS % (MANUAL) 68 %
[2022-05-29 11:34] LABS: BASOPHILS % (MANUAL) 3 %; EOSINOPHILS % (MANUAL) 7 %; HYPOCHROMASIA MODERATE; LYMPHOCYTES % (MANUAL) 21 %; MONOCYTES % (MANUAL) 1 %; POLYCHROMASIA SLIGHT; TARGET CELLS MODERATE; TEAR DROP CELLS SLIGHT
--- NOTE | 2022-05-29 16:35 | Progress Note - Surgery ---
Subjective Date Seen by a Provider: May 29, 2022 Time Seen by a Provider: 16:30 Subjective/Events-last exam Patient hgb still low despite transfusion. Received two units prbc today. Not having any dark or bloody stools. Patient fatigued but answering questions. Had endoscopies in [place] but we have not received those yet and he is not sure of results. Denies n/v fever sweats chills shortness of breath or chest pain. Objective Exam Vital Signs Date Time Temp Pulse Resp B/P (MAP) Pulse Ox O2 Delivery O2 Flow Rate FiO2 05/29/22 16:00 109 21 173/75 (107) Nasal Cannula 2.00 05/29/22 15:14 37.2 05/29/22 14:03 37.1 106 28 171/78 95 Room Air 05/29/22 13:48 37.0 103 28 140/76 95 Room Air 05/29/22 13:24 36.9 111 24 155/79 100 Room Air 05/29/22 13:06 99 Room Air 05/29/22 13:00 110 05/29/22 12:00 107 12 156/69 (98) 97 Nasal Cannula 2.00 05/29/22 12:00 36.9 112 23 169/87 (114) 93 05/29/22 10:42 37.3 101 26 186/79 95 Room Air 05/29/22 10:26 37.3 106 26 170/83 96 Room Air 05/29/22 09:51 36.9 109 99 101/81 Room Air 05/29/22 09:06 99 Room Air 05/29/22 07:43 37.4 111 11 158/66 (96) 96 05/29/22 07:11 36.5 107 26 158/66 98 Room Air 05/29/22 07:06 36.4 111 26 159/82 97 Room Air 05/29/22 07:01 37.4 103 26 150/88 98 Room Air 05/29/22 07:00 109 05/29/22 06:54 37.4 104 22 185/86 95 05/29/22 06:00 105 20 185/86 (119) 98 Nasal Cannula 2.00 05/29/22 05:08 99 Nasal Cannula 2.00 05/29/22 05:00 106 27 145/101 (116) 95 Nasal Cannula 2.00 05/29/22 04:00 108 20 173/116 (135) 98 Nasal Cannula 2.00 05/29/22 04:00 37.3 05/29/22 03:00 109 24 168/60 (96) 100 Nasal Cannula 2.00 05/29/22 02:00 108 25 154/66 (95) 95 Nasal Cannula 2.00 05/29/22 01:06 99 Nasal Cannula 2.00 05/29/22 01:00 106 05/29/22 01:00 109 16 165/127 (140) 98 Nasal Cannula 2.00 05/29/22 00:00 37.4 05/29/22 00:00 105 19 154/80 (104) 100 Nasal Cannula 2.00 05/28/22 23:00 109 11 144/72 (96) 95 Nasal Cannula 2.00 05/28/22 22:00 113 25 119/59 (79) 95 Nasal Cannula 2.00 05/28/22 21:33 99 Nasal Cannula 2.00 05/28/22 21:00 108 23 158/77 (104) 97 Nasal Cannula 2.00 05/28/22 20:00 106 22 139/80 (99) 97 Nasal Cannula 2.00 05/28/22 20:00 37.2 05/28/22 19:00 111 05/28/22 19:00 111 22 176/67 (103) 94 Nasal Cannula 2.00 05/28/22 17:06 97 Nasal Cannula 2.00 I & O0 05/29/22 07:00 Intake Total 1920 ml Output Total 1025 ml Balance 895 ml Capillary Refill : Greater Than 3 Seconds General Appearance: No Apparent Distress, Chronically ill, Obese HEENT: PERRL/EOMI, Moist Mucous Membranes Neck: Normal Inspection, Supple Respiratory: Chest Non Tender, No Accessory Muscle Use, No Respiratory Distress Cardiovascular: Regular Rate, Rhythm, No JVD Gastrointestinal: non tender, soft, other (morbidly obese) Extremity: Normal Capillary Refill, No Calf Tenderness, No Pedal Edema Neurologic/Psychiatric: Alert, Oriented x3 (to major details only) Skin: No Ecchymosis; Pallor; No Petechia Lymphatic: No Adenopathy Results Lab Laboratory Tests 05/28/22 21:13: Glucometer 143H 05/29/22 04:44: White Blood Count 3.1L, Red Blood Count 1.86L, Hemoglobin 5.2*L, Hematocrit 17*L , Mean Corpuscular Volume 94, Mean Corpuscular Hemoglobin 28, Mean Corpuscular Hemoglobin Concent 30L, Red Cell Distribution Width 22.9H, Platelet Count 19*L, Mean Platelet Volume , Immature Granulocyte % (Auto) 0, Neutrophils (%) (Auto) 62, Lymphocytes (%) (Auto) 23, Monocytes (%) (Auto) 11, Eosinophils (%) (Auto) 3, Basophils (%) (Auto) 0, Neutrophils # (Auto) 1.8, Lymphocytes # (Auto) 0.7L, Monocytes # (Auto) 0.3, Eosinophils # (Auto) 0.1, Basophils # (Auto) 0.0, Immature Granulocyte # (Auto) 0.0, Neutrophils % (Manual) 68, Lymphocytes % (Manual) 21, Monocytes % (Manual) 1, Eosinophils % (Manual) 7, Basophils % (Manual) 3, Smudge Cells MOD, Percent Immature Platelet Fraction 6.5, Polychromasia SLIGHT, Hypochromasia MODERATE, Target Cells MODERATE, Tear Drop Cells SLIGHT, Absolute Reticulocyte Count 107H, Percent Reticulocyte Count 5.71H , Prothrombin Time 22.4H, INR Comment 1.9H, Sodium Level 137, Potassium Level 3.4L, Chloride Level 107, Carbon Dioxide Level 21, Anion Gap 9, Blood Urea Nitrogen 18, Creatinine 0.70, Estimat Glomerular Filtration Rate 117, BUN/Creatinine Ratio 26, Glucose Level 110H, Calcium Level 7.1L, Magnesium Level 1.4L, Smear Scan 05/29/22 10:50: Prothrombin Time 21.2H, INR Comment 1.8H, Activated Partial Thromboplast Time 41H, Fibrinogen 140L, D-Dimer 3.14H, Total Bilirubin 7.0H, Lactate Dehydrogenase 347H 05/29/22 10:51: Glucometer 122H 05/29/22 15:17: Glucometer 130H Assessment/Plan Assessment/Plan Assessment/Plan Anemia End stage liver disease GI bleed morbid obesity follow hgb awaiting results from outside facility from endoscopy PPI may need repeat endoscopy transfuse prbc as needed NPO JONES SOTELO DO May 29, 2022 16:35
[2022-05-29] MEDS: FLUTICASONE NASAL SPRAY (FLONASE) 16 GM BTL NS SCH (20:44)
[2022-05-29] MEDS ORDERED: NON-FORMULARY MEDICATION 1 EA EA (Fluticasone Propionate (Flonase Allergy Relief) 1 SPRAY) NS SCH (21:00)
[2022-05-30] VITALS (21 sets, daily range): BP systolic 102–171; BP diastolic 66–107
[2022-05-30 05:11] LABS: MEAN CORPUSCULAR HEMOGLOBIN 28 pg (25-34); MEAN CORPUSCULAR HGB CONC 31 g/dL (32-36); MEAN CORPUSCULAR VOLUME 91 fL (80-99); WHITE BLOOD COUNT 3.4 10^3/uL (4.3-11.0)
[2022-05-30 05:19] LABS: HEMATOCRIT 20 % (40-54); HEMOGLOBIN 6.2 g/dL (13.3-17.7); PLATELET COUNT 22 10^3/uL (130-400)
[2022-05-30 05:23] LABS: POTASSIUM 3.5 MMOL/L (3.6-5.0)
[2022-05-30 05:24] LABS: CALCIUM 7.4 MG/DL (8.5-10.1)
[2022-05-30 05:28] LABS: CREATININE SERUM 0.7 MG/DL (0.60-1.30)
[2022-05-30 05:31] LABS: MAGNESIUM 1.5 MG/DL (1.6-2.4)
[2022-05-30] MEDS: inSUlin ASPART (NovoLOG) 1 UNIT/0.01 ML (CHARGE PER UNIT) SC SCH ×4 (05:36→20:47)
--- NOTE | 2022-05-30 05:37 | Progress Note ---
Standard Progress Note Progress Notes/Assess & Plan Date Seen by a Provider: May 30, 2022 Time Seen by a Provider: 05:36 Progress/Assessment & Plan called for Hb 6.2,-will give one unit of PRBC, plt 22k-no active bleeding, will not transfuse MD DRE Kay,NATALIA Nichols MD May 30, 2022 05:37
[2022-05-30] MEDS: MAGNESIUM 1 GM/100 ML IVPB 100 ML IV SCH ×2 (05:43→05:54)
[2022-05-30] MEDS: POTASSIUM CL 10MEQ/50ML IVPB 50 ML IV SCH (05:43)
[2022-05-30] MEDS: KCL 20 MEQ TAB (K-DUR) PO SCH (05:43)
[2022-05-30] MEDS ORDERED: NS IV 500 ML 500 ML IV SCH (05:45)
[2022-05-30] MEDS ORDERED: KCL 20 MEQ TAB (K-DUR) PO ONE (06:00)
[2022-05-30] MEDS: FLUTICASONE NASAL SPRAY (FLONASE) 16 GM BTL NS SCH ×2 (11:02→19:49)
[2022-05-30] MEDS: PANTOPRAZOLE 40 MG (PROTONIX) VIAL IV SCH ×2 (11:02→19:46)
[2022-05-30] MEDS: THIAMINE 100 MG (VITAMIN B-1) TAB PO SCH (11:02)
[2022-05-30] MEDS: FOLIC ACID 1 MG TAB PO SCH (11:02)
--- NOTE | 2022-05-30 16:10 | Progress Note-Pre Operative ---
Pre-Operative Progress Note Date of Available H&P: May 30, 2022 Date H&P Reviewed: May 30, 2022 Time H&P Reviewed: 16:00 History & Physical: No changes noted Pre-Operative Diagnosis: anemia with hx alcoholism and liver failure GUNNAR BOWER MD May 30, 2022 16:10
--- NOTE | 2022-05-30 17:45 | Progress Note - Hospitalist ---
Subjective HPI/CC On Admission Date Seen by Provider: May 30, 2022 Time Seen by Provider: 09:45 Patient is a 46-year-old male known to me from previous admission who presented to the emergency department due to alcohol intoxication. He has a long history of alcohol abuse and end-stage liver disease and was here last month with similar. He elected to leave AMA at that time. He is unable to tell me what brought him to the hospital and all history is obtained from the records. His current alcohol level is 374. Per the ER he was recently served divorce papers from his and has been staying in a hotel and doing nothing but drinking. He was found by EMS covered in his own feces and was brought in for evaluation. He was found to have a hemoglobin of 6.4 and he has known anemia but has not followed up with surgery. Subjective/Events-last exam He is sleeping but easily awakens. He denies any complaints. He is oriented. He has not noticed any blood in his stools. Objective Exam Vital Signs Vital Signs Date Time Temp Pulse Resp B/P (MAP) Pulse Ox O2 Delivery O2 Flow Rate FiO2 05/30/22 15:47 37.5 102 17 148/68 (94) 95 Room Air 05/30/22 13:00 2.00 Capillary Refill : Greater Than 3 Seconds General Appearance: No Apparent Distress, Obese Respiratory: No Respiratory Distress, Decreased Breath Sounds Cardiovascular: No Murmur, Tachycardia Gastrointestinal: Normal Bowel Sounds, Soft Extremity: Normal Inspection, No Pedal Edema Neurologic/Psychiatric: Alert, Normal Mood/Affect Skin: Normal Color, Warm/Dry Results/Procedures Lab Laboratory Tests 05/30/22 04:30 05/30/22 11:00 Patient resulted labs reviewed. Assessment/Plan Assessment and Plan Assess & Plan/Chief Complaint Pancytopenia Likely multifactorial, alcohol induced bone marrow suppression with chronic GI bleeding Reticulocyte index indicative of hypoproliferation Hgb 7 s/p 5 units PRBC, 1 unit platelets IV PPI Surgery following FOBT+ on last visit Planning for EGD and colonoscopy Alcohol dependence Acute alcohol intoxication Hepatitis C End stage liver disease Decompensated hepatic cirrhosis Monitoring for withdrawal CIWA protocol Seizures precautions Hyperglycemia A1C low, possibly due to anemia Monitor DVT ppx: SCDs only due to anemia Diagnosis/Problems Diagnosis/Problems (1) Pancytopenia Status: Acute (2) Alcohol intoxication Status: Acute (3) Chronic liver disease due to alcohol Status: Acute (4) Hepatitis C Status: Chronic Qualifiers: Viral hepatitis chronicity: chronic Hepatic coma status: without hepatic coma Qualified Codes: B18.2 - Chronic viral hepatitis C (5) GI bleed Status: Acute (6) End stage liver disease Status: Acute BARBARA PETERSON MD May 30, 2022 17:45
[2022-05-30] MEDS: MAGNESIUM CITRATE 300 ML BTL PO SCH ×2 (19:49→23:18)
[2022-05-31 00:08] VITALS: BP 138/64
[2022-05-31 03:35] VITALS: BP 139/58
[2022-05-31] MEDS: THIAMINE 100 MG (VITAMIN B-1) TAB PO SCH (05:47)
[2022-05-31] MEDS: KCL 20 MEQ TAB (K-DUR) PO SCH (05:47)
[2022-05-31 05:57] LABS: MEAN PLATELET VOLUME 10.3 fL (9.0-12.2); WHITE BLOOD COUNT 3.5 10^3/uL (4.3-11.0)
[2022-05-31 06:04] LABS: POTASSIUM 3.6 MMOL/L (3.6-5.0)
[2022-05-31 06:06] LABS: CALCIUM 7.7 MG/DL (8.5-10.1)
[2022-05-31 06:07] LABS: TOTAL PROTEIN 5.6 GM/DL (6.4-8.2)
[2022-05-31] MEDS: inSUlin ASPART (NovoLOG) 1 UNIT/0.01 ML (CHARGE PER UNIT) SC SCH ×2 (06:07→12:27)
[2022-05-31 06:09] LABS: BILIRUBIN,TOTAL 7.2 MG/DL (0.1-1.0)
[2022-05-31 06:10] LABS: CREATININE SERUM 0.78 MG/DL (0.60-1.30)
[2022-05-31 06:12] LABS: BILIRUBIN,INDIRECT 3.2 MG/DL
[2022-05-31 06:13] LABS: MAGNESIUM 1.8 MG/DL (1.6-2.4)
[2022-05-31] MEDS: MAGNESIUM 1 GM/100 ML IVPB 100 ML IV SCH (06:16)
[2022-05-31] MEDS: POTASSIUM CL 10MEQ/50ML IVPB 50 ML IV SCH ×3 (06:35→08:35)
[2022-05-31 06:41] LABS: HEMOGLOBIN 6.7 g/dL (13.3-17.7)
[2022-05-31 07:30] VITALS: BP 166/75
[2022-05-31] MEDS: PANTOPRAZOLE 40 MG (PROTONIX) VIAL IV SCH (08:35)
[2022-05-31] MEDS: MAGNESIUM CITRATE 300 ML BTL PO SCH (08:43)
[2022-05-31] MEDS: FLUTICASONE NASAL SPRAY (FLONASE) 16 GM BTL NS SCH (08:43)
[2022-05-31] MEDS: FOLIC ACID 1 MG TAB PO SCH (08:43)
[2022-05-31 12:15] VITALS: BP_SYST 116; BP_SYST 149; BP_DIAS 60; BP_DIAS 62
--- NOTE | 2022-05-31 13:09 | Progress Note ---
Subjective Date Seen by a Provider: May 31, 2022 Time Seen by a Provider: 12:00 Subjective/Events-last exam doing ok. hb low but stable. patient states he had esophageal varices banded before in [place] in the past however unreliable. patient refusing endoscopy however states will do both EGD and colonoscopy as OP. Objective Exam Vital Signs Date Time Temp Pulse Resp B/P (MAP) Pulse Ox O2 Delivery O2 Flow Rate FiO2 05/31/22 12:15 37.4 108 20 149/62 (91) 99 Room Air 05/31/22 08:00 Room Air 05/31/22 07:30 37.2 100 18 166/75 (105) 98 Room Air 05/31/22 07:21 104 05/31/22 03:35 37.3 111 18 139/58 (85) 96 Room Air 05/31/22 01:00 96 05/31/22 00:08 37.3 94 18 138/64 (88) 98 Room Air 05/30/22 20:13 37.7 100 18 145/77 (99) 96 Room Air 05/30/22 19:46 Room Air 05/30/22 19:00 101 05/30/22 15:47 37.5 102 17 148/68 (94) 95 Room Air 05/30/22 15:01 37.5 101 20 158/74 (102) 97 Room Air 05/30/22 14:56 102 05/30/22 13:52 Room Air I & O 05/31/22 07:00 Intake Total 1710 ml Output Total 800 ml Balance 910 ml Capillary Refill : Greater Than 3 Seconds General Appearance: No Apparent Distress HEENT: PERRL/EOMI Neck: Full Range of Motion Respiratory: Chest Non Tender Cardiovascular: Regular Rate, Rhythm Gastrointestinal: normal bowel sounds, non tender, soft Extremity: Normal Capillary Refill Neurologic/Psychiatric: Alert, Oriented x3 Skin: Normal Color Lymphatic: No Adenopathy Results Lab Laboratory Tests 05/30/22 15:30: Glucometer 104 05/30/22 20:24: Glucometer 311H 05/31/22 05:47: White Blood Count 3.5L, Red Blood Count 2.34L, Hemoglobin 6.7*L, Hematocrit 22L, Mean Corpuscular Volume 92, Mean Corpuscular Hemoglobin 29, Mean Corpuscular Hemoglobin Concent 31L, Red Cell Distribution Width 21.9H, Platelet Count 26*L, Mean Platelet Volume 10.3, Percent Immature Platelet Fraction 8.0H, Sodium Level 136, Potassium Level 3.6, Chloride Level 106, Carbon Dioxide Level 23, Anion Gap 7, Blood Urea Nitrogen 14, Creatinine 0.78, Estimat Glomerular Filtration Rate 113, BUN/Creatinine Ratio 18, Glucose Level 111H, Calcium Level 7.7L, Magnesium Level 1.8, Total Bilirubin 7.2H, Direct Bilirubin 4.0H, Indirect Bilirubin 3.2, Aspartate Amino Transf (AST/SGOT) 54H, Alanine Aminotransferase (ALT/SGPT) 25, Alkaline Phosphatase 84, Total Protein 5.6L, Albumin 2.0L Assessment/Plan Assessment/Plan Assess & Plan/Chief Complaint GI bleed with hx ETOH induced recurrent acute hepatic failure and liver cirrhosis. recommend PPI daily and ETOH cessation. will need f/u endsocopy as OP. GUNNAR BOWER MD May 31, 2022 13:09
== END 2022-05-31 13:45 | disposition left against medical advice (07) | DRG 432 ==
LOC: EDUNIT# 08:13 → ER 08:14 → CSD 11:59 → OBSVTOIN 05-28 10:40 → ICU 05-28 15:50 → 4TH 05-30 13:40
PROVIDERS: ADMIT Family Medicine; ATTEND Internal Medicine
DX: K70.30 Alcoholic cirrhosis of liver without ascites (principal); D61.89 Other specified aplastic anemias and other bone marrow failure syndromes; Z68.42 Body mass index [BMI] 45.0-49.9, adult; K92.2 Gastrointestinal hemorrhage, unspecified; D61.818 Other pancytopenia; F10.229 Alcohol dependence with intoxication, unspecified; K70.40 Alcoholic hepatic failure without coma; Y90.8 Blood alcohol level of 240 mg/100 ml or more; I10 Essential (primary) hypertension; E66.01 Morbid (severe) obesity due to excess calories; D64.9 Anemia, unspecified; R73.9 Hyperglycemia, unspecified; E80.6 Other disorders of bilirubin metabolism; Z20.822 Contact with and (suspected) exposure to COVID-19
CPT/HCPCS: 36410; 36415; 36430; 51702; 76937; 80048; 80053; 80076; 80306; 80320; 80329; 81000; 82247; 82947; 83010; 83615; 83735; 85007; 85014; 85018; 85025; 85027; 85045; 85055; 85379; 85384; 85610; 85730; 86850; 86900; 86901; 86920; 87636; 93005